=== PATIENT | female | born 1965 | race Caucasian/White ===

== ENCOUNTER → 2019-10-28 | Outpatient (CLI) | payer BC ==
[~2019-10-28] MED LIST: REGADENOSON 0.4 MG/5 ML SYRINGE IV ONE
--- NOTE | 2019-10-28 11:16 | EST ---
EXERCISE STRESS DATE OF SERVICE: 10/28/2019 AGE: 54 SEX: Female HT: 61" WT: 145 pounds PROTOCOL: Lexiscan Cardiolite STAGE: DURATION OF EXERCISE: HEART RATE REST: 68 BLOOD PRESSURE REST: 106/68 MAXIMUM HEART RATE ACHIEVED: 114 MAXIMUM BLOOD PRESSURE: 125/60 85% MPHR: 143 100% MPHR: 168 METS: INDICATIONS: Chest pain. CLINICAL INFORMATION: Baseline EKG revealed normal sinus rhythm with baseline artifact. No acute changes. Patient was administered Lexiscan as per protocol. Heart rate changed from 68 to 114 beats per minute. Blood pressure changed from 106/68 to 125/60. She had transient nausea. EKG was unremarkable. By EKG criteria, this is an unremarkable Lexiscan stress test. The nuclear scan results which are more pertinent will be reported by the radiologist. MMODL / IJN: [id number] /
--- NOTE | 2019-10-28 12:20 | US ---
EXAMINATION TYPE: US abdomen complete DATE OF EXAM: 10/28/2019 COMPARISON: NONE CLINICAL HISTORY: R11.2 nausea and vomiting. Nausea, vomiting and bloating. EXAM MEASUREMENTS: Liver Length: 17.3 cm Gallbladder Wall: .2 cm CBD: .4 cm Spleen: 11.4 cm Right Kidney: 10.4 x 3.9 x 3.1 cm Left Kidney: 10.2 x 4.2 x 4.0 cm Pancreas: Heterogeneous and hypoechoic in appearance at its visualized portions, tail not included o n exam` Liver: Increased attenuation and the liver may be enlarged Gallbladder: No stones seen Evidence for sonographic Pizano's sign: No CBD: wnl Spleen: Heterogenous Right Kidney: wnl there may be duplicated system Left Kidney: wnl, the kidneys show normal cortical medullary differentiation Upper IVC: wnl Abd Aorta: wnl There is no ascites. IMPRESSION: Heterogeneous appearance of the pancreas, spleen is indeterminate, consider pancreatic MR I or CT for better evaluation, possible hepatic steatosis, hepatomegaly
--- NOTE | 2019-10-28 12:28 | NM ---
EXAMINATION TYPE: NM stress lexiscan cardiolite DATE OF EXAM: 10/28/2019 COMPARISON: NONE HISTORY: Chest pain TECHNIQUE: After the intravenous administration of 10.3 mCi Tc 99m Sestamibi - Cardiolite resting SP ECT images acquired 45 minutes post injection. The patient received 0.4mg Lexiscan, 26.9 mCi Tc 99m Sestamibi - Stress images obtained [address] injection FINDINGS: No fixed or reversible perfusion defects are evident. Gated wall motion is normal. The ejec tion fraction of 89% is normal. IMPRESSION: 1. No stress-induced ischemic changes.
== END | disposition home or self-care (01) ==
LOC: RADNMMAIN 08:10
PROVIDERS: ATTEND Physician Assistant Medical
DX: K86.9 Disease of pancreas, unspecified (principal); R06.00 Dyspnea, unspecified; R07.9 Chest pain, unspecified; R53.83 Other fatigue; R11.2 Nausea with vomiting, unspecified
CPT/HCPCS: 93017; 76700; 78452; A9500; J2785

== ENCOUNTER → 2019-12-26 | Outpatient (CLI) | payer BC ==
--- NOTE | 2019-12-26 15:29 | CT ---
EXAMINATION TYPE: CT abdomen wo/w con DATE OF EXAM: 12/26/2019 COMPARISON: Correlation ultrasound 10/28/2019 HISTORY: 54-year-old female abnormal US per patient. Other specified diseases of the pancreas, K86.89 , R11.0 TECHNIQUE: Contiguous axial scanning of the abdomen before and after administration of 100 ml Isovue 300 IV contrast. Delayed images through the kidneys and coronal/sagittal reconstructions performed. CT DLP: 745.3 mGycm Automated exposure control for dose reduction was used. FINDINGS: Heart normal size without pericardial effusion. Lung bases clear without pleural effusion. Tiny hiatal hernia. Liver enlarged at 19.2 cm. No focal lesion or biliary ductal dilatation. Portal venous system is rivera nt. Gallbladder, adrenal glands, right kidney, spleen, pancreas appear within normal limits. Indeterminate 7 mm cortical hypodensity medial upper pole left kidney too small for accurate CT alva cterization. A few prominent mid and left-sided abdominal mesenteric lymph nodes measuring up to 6 mm, probably re active/post inflammatory. Some slight associated mesenteric haziness, reference axial image 41 and 43 . No dilated small bowel, free fluid, or free air. Normal appendix. Oral contrast progressed to the hepatic flexure. No significant stool burden. No pericolonic inflamma tory change within the upper and mid abdomen. The pelvis is not imaged. Partially visualized uterus and left ovary. Bones: Mild degenerative disc disease lower lumbar spine. Fatty matrix hemangioma within the L3 verte bral body. IMPRESSION: 1. No discrete abnormality of the pancreas. 2. A few prominent but nonenlarged mid and left-sided mesenteric lymph nodes with slight associated m esenteric haziness. 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 Six-month follow-up CT rec ommended to ensure stability/resolution. 3. A six-month follow-up CT can also reassess and indeterminate 7 mm cortical lesion of the upper kong e left kidney, probable cortical cyst. 4. Hepatomegaly (19.2 cm). Suspect at least mild hepatic steatosis.
== END | disposition home or self-care (01) ==
LOC: RADCTMAIN 12:58
PROVIDERS: ATTEND Family Medicine
DX: R16.0 Hepatomegaly, not elsewhere classified (principal); Z88.5 Allergy status to narcotic agent
CPT/HCPCS: 74170; Q9967

== ENCOUNTER → 2020-10-03 | Outpatient (CLI) | payer BC ==
--- NOTE | 2020-10-10 11:02 | P.ARTDOP ---
Arterial Doppler LOWER EXTREMITY ARTERIAL DOPPLER: DATE OF SERVICE: 10/03/2020 Reason for study: Bilateral foot numbness and pain. Doppler waveforms: Multiphasic bilaterally throughout. Pulse volume recording: []. Pressure gradients: None. Ankle-brachial indices: Greater than 1 bilaterally. Toe brachial indices: 0.85 on the right, 0.88 on the left Impression: Normal study.
== END | disposition home or self-care (01) ==
LOC: RADUSWWP 12:26
PROVIDERS: ATTEND Family Medicine
DX: M79.604 Pain in right leg (principal); M79.605 Pain in left leg; I10 Essential (primary) hypertension; E78.5 Hyperlipidemia, unspecified
CPT/HCPCS: 93922

== ENCOUNTER 2020-10-25 13:41 | Emergency (ER) | payer BC ==
[2020-10-25 13:49] VITALS: RESP 16; TEMP 98.3
[2020-10-25] MEDS ORDERED: SODIUM CHLORIDE 0.9% 1,000 ML IV STA (14:02)
--- NOTE | 2020-10-25 14:02 | ED ---
General Adult HPI - General Chief complaint: Dizziness Stated complaint: Dizzy Time Seen by Provider: 10/25/20 13:54 Source: patient, RN notes reviewed, old records reviewed Mode of arrival: wheelchair Limitations: no limitations - History of Present Illness Initial comments: 55-year-old female with 3 weeks of dizziness, lightheadedness, generalized wea kness. She is scheduled to see her neurologist but not until later this month. Patient has history of seizure disorder, hypertension, hyperlipidemia. She denies fever. Denies cough or dyspnea. Denies chest pain. She denies focal numbness or weakness. She states that when she stands the room starts to spin. She denies a previous history of vertigo. Symptoms have been present for approximately 3 weeks. She states she has been eating and drinking well, no vomiting. - Related Data Home Medications Medication Instructions Recorded Confirmed Atorvastatin Calcium [Lipitor] 40 mg PO HS 10/25/20 10/25/20 Cholecalciferol [Vitamin D3 (25 25 mcg PO DAILY 10/25/20 10/25/20 Mcg = 1000 Iu)] Escitalopram [Lexapro] 20 mg PO DAILY 10/25/20 10/25/20 Levothyroxine Sodium [Synthroid] 50 mcg PO DAILY 10/25/20 10/25/20 Metoprolol Succinate (ER) [Toprol 25 mg PO DAILY 10/25/20 10/25/20 Xl] Vitamin B-12 W/Folic Acid 1 tab PO DAILY 10/25/20 10/25/20 levETIRAcetam [Keppra] 750 mg PO DAILY 10/25/20 10/25/20 lisinopriL 40 mg PO HS 10/25/20 10/25/20 Previous Rx's Medication Instructions Recorded B-Complex with Vitamin C 1 each PO DAILY #30 tablet 10/25/20 [B-Complex Plus Vitamin C] Magnesium Oxide [Mag-Ox] 250 mg PO BID 30 Days #60 tablet 10/25/20 Allergies Allergy/AdvReac Type Severity Reaction Status Date / Time acetaminophen [From Vicodin] AdvReac Itching Verified 10/25/20 14:24 hydrocodone [From Vicodin] AdvReac Itching Verified 10/25/20 14:24 Review of Systems ROS Statement: Those systems with pertinent positive or pertinent negative responses have been documented in the HPI. ROS Other: All systems not noted in ROS Statement are negative. Past Medical History Past Medical History: Hypertension, Seizure Disorder Additional Past Medical History / Comment(s): skin cancer History of Any Multi-Drug Resistant Organisms: None Reported Past Surgical History: Section Past Psychological History: No Psychological Hx Reported Smoking Status: Former smoker Past Alcohol Use History: Rare Past Drug Use History: None Reported General Exam Limitations: no limitations General appearance: alert, in no apparent distress Head exam: Present: atraumatic, normocephalic Eye exam: Present: normal appearance, PERRL ENT exam: Present: normal exam Neck exam: Present: normal inspection. Absent: tenderness, meningismus Respiratory exam: Present: normal lung sounds bilaterally. Absent: respiratory distress Cardiovascular Exam: Present: normal rhythm, tachycardia GI/Abdominal exam: Present: soft. Absent: distended, tenderness, guarding, rebound Extremities exam: Present: normal inspection, normal capillary refill. Absent: pedal edema, calf tenderness Neurological exam: Present: alert, oriented X3, CN II-XII intact. Absent: motor sensory deficit Psychiatric exam: Present: normal affect, normal mood Skin exam: Present: warm, dry, intact. Absent: cyanosis, diaphoretic Course Vital Signs 10/25/20 10/25/20 13:46 15:27 Temperature 98.3 F Pulse Rate 115 H 86 Respiratory 16 16 Rate Blood Pressure 100/66 113/67 O2 Sat by Pulse 97 98 Oximetry - Reevaluation(s) Reevaluation #1: 10/25/20 16:06 DD hypomagnesemia and macrocytic anemia did discuss alcohol consumption with the patient. She states that she has approximately one bottle of wine nightly. EKG Findings - EKG Comments: EKG Findings:: EKG: Normal sinus rhythm, possible left atrial enlargement, rate of 98, NV interval 160, QRS duration 86, QTC 454, no ST segment elevation. Medical Decision Making - Medical Decision Making 55-year-old female with lightheadedness, dizziness, generalized weakness. Patient mildly tachycardic upon arrival. She has a nonfocal neurologic exam, no limb ataxia, normal strength throughout, [address] is performed which is negative for intracranial hemorrhage or mass effect. Chest x-rays negative for acute cardiac primary disease. She has a CBC with normal leukocytosis, hemoglobin 12.1 with a slightly increased MCV. She has a creatinine 1.1 which is baseline. She has a magnesium of 0.8. She states that she had a lab draw several weeks ago and was noted to be hypomagnesemic she has started 500 mg daily magnesium but discontinued this secondary to diarrhea. I did plan to admit this patient for IV magnesium, and repeat electrolyte testing the morning. She declines she prefers to be discharged home. She is prescribed oral magnesium after being given 2 g of IV magnesium in the emergency department. I suspect that this is largely responsible for her symptoms. She will follow with her primary care physician in one week for repeat lab testing. She will return to emergency department with worsening or changing symptoms. - Lab Data Result diagrams: 10/25/20 14:08 10/25/20 14:08 Lab Results 10/25/20 10/25/20 10/25/20 Range/Units 14:08 14:08 14:08 WBC 6.9 (3.8-10.6) k/uL RBC 3.48 L (3.80-5.40) m/uL Hgb 12.1 (11.4-16.0) gm/dL Hct 35.9 (34.0-46.0) % MCV 103.0 H (80.0-100.0) fL MCH 34.8 (25.0-35.0) pg MCHC 33.8 (31.0-37.0) g/dL RDW 10.7 L (11.5-15.5) % Plt Count 327 (150-450) k/uL MPV 7.3 Neutrophils % 65 % Lymphocytes % 25 % Monocytes % 5 % Eosinophils % 2 % Basophils % 1 % Neutrophils # 4.4 (1.3-7.7) k/uL Lymphocytes # 1.7 (1.0-4.8) k/uL Monocytes # 0.4 (0-1.0) k/uL Eosinophils # 0.2 (0-0.7) k/uL Basophils # 0.1 (0-0.2) k/uL PT (9.0-12.0) sec INR (<1.2) APTT (22.0-30.0) sec Sodium 140 (137-145) mmol/L Potassium 4.3 (3.5-5.1) mmol/L Chloride 104 (98-107) mmol/L Carbon Dioxide 26 (22-30) mmol/L Anion Gap 10 mmol/L BUN 12 (7-17) mg/dL Creatinine 1.10 H (0.52-1.04) mg/dL Est GFR (CKD-EPI)AfAm 66 (>60 ml/min/1.73 sqM) Est GFR (CKD-EPI)NonAf 58 (>60 ml/min/1.73 sqM) Glucose 112 H (74-99) mg/dL Calcium 10.5 H (8.4-10.2) mg/dL Magnesium 0.8 L* (1.6-2.3) mg/dL Total Bilirubin 1.0 (0.2-1.3) mg/dL AST 49 H (14-36) U/L ALT 34 (4-34) U/L Alkaline Phosphatase 80 (38-126) U/L Troponin I <0.012 (0.000-0.034) ng/mL Total Protein 7.3 (6.3-8.2) g/dL Albumin 4.4 (3.5-5.0) g/dL 10/25/20 Range/Units 14:51 WBC (3.8-10.6) k/uL RBC (3.80-5.40) m/uL Hgb (11.4-16.0) gm/dL Hct (34.0-46.0) % MCV (80.0-100.0) fL MCH (25.0-35.0) pg MCHC (31.0-37.0) g/dL RDW (11.5-15.5) % Plt Count (150-450) k/uL MPV Neutrophils % % Lymphocytes % % Monocytes % % Eosinophils % % Basophils % % Neutrophils # (1.3-7.7) k/uL Lymphocytes # (1.0-4.8) k/uL Monocytes # (0-1.0) k/uL Eosinophils # (0-0.7) k/uL Basophils # (0-0.2) k/uL PT 11.3 (9.0-12.0) sec INR 1.1 (<1.2) APTT 22.5 (22.0-30.0) sec Sodium (137-145) mmol/L Potassium (3.5-5.1) mmol/L Chloride (98-107) mmol/L Carbon Dioxide (22-30) mmol/L Anion Gap mmol/L BUN (7-17) mg/dL Creatinine (0.52-1.04) mg/dL Est GFR (CKD-EPI)AfAm (>60 ml/min/1.73 sqM) Est GFR (CKD-EPI)NonAf (>60 ml/min/1.73 sqM) Glucose (74-99) mg/dL Calcium (8.4-10.2) mg/dL Magnesium (1.6-2.3) mg/dL Total Bilirubin (0.2-1.3) mg/dL AST (14-36) U/L ALT (4-34) U/L Alkaline Phosphatase (38-126) U/L Troponin I (0.000-0.034) ng/mL Total Protein (6.3-8.2) g/dL Albumin (3.5-5.0) g/dL Disposition Clinical Impression: Dehydration, Hypomagnesemia Disposition: HOME SELF-CARE Condition: Fair Instructions (If sedation given, give patient instructions): Dizziness (ED), Hypomagnesemia (ED) Additional Instructions: Please take 250 mg of magnesium [id number] supplementation daily. Please follow up with primary care physician within the next one week for repeat lab testing. Please take a vitamin B complex daily. Please reduce alcohol con sumption. Prescriptions: B-Complex with Vitamin C [B-Complex Plus Vitamin C] 1 each PO DAILY #30 tablet Magnesium Oxide [Mag-Ox] 250 mg PO BID 30 Days #60 tablet Is patient prescribed a controlled substance at d/c from ED?: No Referrals: Jamia Irwin MD [Primary Care Provider] - 1-2 days Time of Disposition: 16:09
[2020-10-25] MEDS ORDERED: MECLIZINE 12.5 MG TAB PO STA (14:03)
[2020-10-25 14:22] LABS: Basophils # (A) 0.1 k/uL (0-0.2); Basophils % (A) 1 %; Eosinophils # (A) 0.2 k/uL (0-0.7); Eosinophils % (A) 2 %; HCT 35.9 % (34.0-46.0); HGB 12.1 gm/dL (11.4-16.0); Lymphocytes # (A) 1.7 k/uL (1.0-4.8); Lymphocytes % (A) 25 %; MCH 34.8 pg (25.0-35.0); MCHC 33.8 g/dL (31.0-37.0); Mean Platelet Volume 7.3; Monocytes # (A) 0.4 k/uL (0-1.0); Monocytes % (A) 5 %; Neutrophils # (A) 4.4 k/uL (1.3-7.7); Neutrophils % (A) 65 %; Platelet Count 327 k/uL (150-450); RBC 3.48 m/uL (3.80-5.40); RDW 10.7 % (11.5-15.5); WBC 6.9 k/uL (3.8-10.6)
[2020-10-25 14:36] LABS: Albumin 4.4 g/dL (3.5-5.0); Calcium 10.5 mg/dL (8.4-10.2); Potassium 4.3 mmol/L (3.5-5.1); Total Protein 7.3 g/dL (6.3-8.2)
--- NOTE | 2020-10-25 15:05 | CT ---
EXAMINATION TYPE: CT brain wo con DATE OF EXAM: 10/25/2020 HISTORY: Dizziness and weakness for [address] DLP: 1099.4 mGycm. Automated Exposure Control for Dose Reduction was Utilized. TECHNIQUE: CT scan of the head is performed without contrast. COMPARISON: None. FINDINGS: There is no acute intracranial hemorrhage or midline shift identified. There is mild diff use ventricular and sulcal prominence consistent with diffuse age-related cerebral atrophy. Horton-whit e matter differentiation maintained. There is 2.1 cm mucous retention cyst or polyp in the posterior inferior right maxillary sinus. Patchy fluid signal in the posterior left ethmoid sinuses. Globes are intact bilaterally. No suspicious opacification mastoid air cells. IMPRESSION: No acute intracranial hemorrhage or midline shift.
[2020-10-25 15:10] LABS: Magnesium 0.8 mg/dL (1.6-2.3)
--- NOTE | 2020-10-25 15:10 | XR ---
EXAMINATION TYPE: XR chest 2V DATE OF EXAM: 10/25/2020 COMPARISON: None INDICATION: Syncope, unable to walk TECHNIQUE: Frontal and lateral views of the chest are obtained. FINDINGS: The heart size is normal. The pulmonary vasculature is normal. The lungs are clear. IMPRESSION: 1. No acute pulmonary process.
[2020-10-25 15:14] LABS: INR 1.1 (<1.2); Partial Thromboplastin Time 22.5 sec (22.0-30.0); Prothrombin Time 11.3 sec (9.0-12.0)
[2020-10-25 15:27] VITALS: BP 113/67; PULSE 86
[2020-10-25] MEDS: MAGNESIUM SULFATE-D5W PMX 1 GM in DEXTROSE/WATER 1 100ML.BAG IVPB SCH ×2 (15:27→16:15)
== END 2020-10-25 17:33 | disposition home or self-care (01) ==
LOC: EC 13:41
DX: E83.42 Hypomagnesemia (principal); E86.0 Dehydration; R53.1 Weakness; D72.829 Elevated white blood cell count, unspecified; I10 Essential (primary) hypertension; E78.5 Hyperlipidemia, unspecified; G40.909 Epilepsy, unspecified, not intractable, without status epilepticus; Z79.899 Other long term (current) drug therapy; Z79.890 Hormone replacement therapy; Z88.5 Allergy status to narcotic agent; Z88.6 Allergy status to analgesic agent; Z85.828 Personal history of other malignant neoplasm of skin; Z87.891 Personal history of nicotine dependence
CPT/HCPCS: 36415; 93005; 80053; 83735; 84484; 85025; 85610; 85730; 71046; 70450; 96365; 96366; 96361; 99285; J3475

== ENCOUNTER 2020-11-04 10:25 | Emergency (ER) | payer BC ==
[2020-11-04] MEDS ORDERED: SODIUM CHLORIDE 0.9% 500 ML 500 ML IV STA (10:59)
--- NOTE | 2020-11-04 11:10 | ED ---
Weakness HPI - General Chief complaint: Weakness Stated complaint: possible low magnesium Time Seen by Provider: 11/04/20 10:44 Source: patient Mode of arrival: wheelchair Limitations: no limitations - History of Present Illness Initial comments: Patient is a 55-year-old female presenting to the emergency Department with complaints of weakness and lightheadedness since been going on for 2 weeks. Patient was seen here 10 days ago for same complaint, she was found to have low magnesium at 0.8. She was given some magnesium, it was rechecked 5 days later and was normal at 1.5. She is concerned that it is low again. She has been taking 500 mg of magnesium for 2 days and then took 250 mg today. She denies any room spinning. She states she notices it more when she changes position from laying down to standing she feels lightheaded and that she might fall down. She states that she was recently treated for a "UTI with Diflucan" 2 days ago. She denies any dysuria or hematuria at this time, but does feel a little bit of frequency. She denies any chest pain or shortness of breath, no abdominal pain, no nausea or vomiting. She is only taking lisinopril right now for her blood pressure as she was on a second medication but has been dropping her blood pressure too low. This change was a few months ago. Patient admits to drinking approximately 1 bottle of wine daily for the past 30 years, she states she has not drank anything in the last 2 weeks. Patient did have a follow-up with her doctor last week, she is to follow-up with her neurologist soon. She has no further complaints at this time. Upon arrival to the ER, her vital signs are stable. - Related Data Home Medications Medication Instructions Recorded Confirmed Atorvastatin Calcium [Lipitor] 40 mg PO HS 10/25/20 11/04/20 Escitalopram [Lexapro] 20 mg PO HS 10/25/20 11/04/20 Levothyroxine Sodium [Synthroid] 50 mcg PO DAILY 10/25/20 11/04/20 levETIRAcetam [Keppra] 750 mg PO DAILY 10/25/20 11/04/20 lisinopriL 40 mg PO HS 10/25/20 11/04/20 Folic Acid 1 mg PO DAILY 11/04/20 11/04/20 Multivitamins, Thera [Multivitamin 1 tab PO DAILY 11/04/20 11/04/20 (formulary)] lidocaine HCL [Lidocaine HCl 10 ml MM Q6H PRN 11/04/20 11/04/20 Viscous] Previous Rx's Medication Instructions Recorded Magnesium Oxide [Mag-Ox] 250 mg PO BID 30 Days #60 tablet 10/25/20 Cephalexin [Keflex] 500 mg PO BID 5 Days #10 cap 11/04/20 Allergies Allergy/AdvReac Type Severity Reaction Status Date / Time hydrocodone [From Vicodin] AdvReac Itching Verified 11/04/20 11:15 Review of Systems ROS Statement: Those systems with pertinent positive or pertinent negative responses have been documented in the HPI. ROS Other: All systems not noted in ROS Statement are negative. Past Medical History Past Medical History: Hypertension, Seizure Disorder Additional Past Medical History / Comment(s): skin cancer History of Any Multi-Drug Resistant Organisms: None Reported Past Surgical History: Section Past Psychological History: No Psychological Hx Reported Smoking Status: Former smoker Past Alcohol Use History: Abuse, Heavy Past Drug Use History: None Reported General Exam - General Exam Comments Initial Comments: GENERAL: Patient is well-developed and well-nourished. Patient is nontoxic and in no acute distress. HEAD: Atraumatic, normocephalic. EYES: Pupils equal round and reactive to light, extraocular movements intact, sclera anicteric, conjunctiva are normal. Eyelids were unremarkable. ENT: TMs normal, nares patent, oropharynx clear without exudates. Moist mucous membranes. NECK: Normal range of motion, supple without lymphadenopathy or JVD. LUNGS: Unlabored respirations. Breath sounds clear to auscultation bilaterally and eq ual. No wheezes rales or rhonchi. HEART: Regular rate and rhythm without murmurs, rubs or gallops. ABDOMEN: Soft, nontender, normoactive bowel sounds. No guarding, no rebound. No masses appreciated. : Deferred MUSCULOSKELETAL: Normal extremities with adequate strength and normal range of motion, no pitting or edema. No clubbing or cyanosis. NEUROLOGICAL: Patient is alert and oriented x 3. Motor and sensory are also intact. Cranial nerves II through XII grossly intact. Symmetrical smile. Normal speech, normal gait. PSYCH: Normal mood, normal affect. SKIN: Warm, Dry, normal turgor, no rashes or lesions noted. Limitations: no limitations Course Vital Signs 11/04/20 11/04/20 11/04/20 10:41 11:32 12:32 Temperature 98.1 F 98.3 F Pulse Rate 93 86 74 Respiratory 18 18 18 Rate Blood Pressure 116/70 136/77 134/86 O2 Sat by Pulse 97 99 99 Oximetry EKG Findings - EKG Comments: EKG Findings:: Normal sinus rhythm, normal ECG, no acute process seen. Ventricular rate 74, VT interval 158, QTC 408. Medical Decision Making - Medical Decision Making Patient is a 55-year-old female here for weakness, lightheadedness that has been intermittent over the past 2 weeks. She was seen here 10 days ago for same complaint, magnesium was low at 0.8. It was rechecked 5 days later and was normal at 1.5. She denies any pain today. She has no acute neuro deficits on exam, exam is unremarkable. She has no lightheadedness or dizziness at this time. EKG is normal. Chest x-ray shows no acute process. Labs show a normal white count, normal hemoglobin, troponin is normal, THS is normal. Magnesium is normal at 1.4 today. Lactic acid is normal. Urine shows wbc's, leukocyte esterase, patient is having frequency. Patient's vital signs remained stable in the ER. On reexamination, she is currently having no symptoms. I discussed these findings with the patient. Patient does have an appointment with her neurologist next week. I also recommended following back up with her PCP. Will start her on Keflex for UTI, urine culture is pending. I also recommended trial of meclizine for her symptoms, could be related to some mild vertigo and or related to alcohol withdrawal. Patient is stable for discharge. Patient is in agreement with this plan of care. Return parameters were discussed with the patient and they verbalized understanding. Case discussed with Dr. Núñez. - Lab Data Result diagrams: 11/04/20 11:26 11/04/20 11:26 Lab Results 11/04/20 11/04/20 11/04/20 Range/Units 11:26 11:26 11:26 WBC 6.8 (3.8-10.6) k/uL RBC 3.58 L (3.80-5.40) m/uL Hgb 11.8 (11.4-16.0) gm/dL Hct 36.4 (34.0-46.0) % MCV 101.6 H (80.0-100.0) fL MCH 33.1 (25.0-35.0) pg MCHC 32.6 (31.0-37.0) g/dL RDW 11.3 L (11.5-15.5) % Plt Count 380 (150-450) k/uL MPV 7.6 Neutrophils % 62 % Lymphocytes % 25 % Monocytes % 7 % Eosinophils % 2 % Basophils % 1 % Neutrophils # 4.2 (1.3-7.7) k/uL Lymphocytes # 1.7 (1.0-4.8) k/uL Monocytes # 0.5 (0-1.0) k/uL Eosinophils # 0.2 (0-0.7) k/uL Basophils # 0.0 (0-0.2) k/uL PT 10.7 (9.0-12.0) sec INR 1.0 (<1.2) APTT 23.8 (22.0-30.0) sec Sodium (137-145) mmol/L Potassium (3.5-5.1) mmol/L Chloride (98-107) mmol/L Carbon Dioxide (22-30) mmol/L Anion Gap mmol/L BUN (7-17) mg/dL Creatinine (0.52-1.04) mg/dL Est GFR (CKD-EPI)AfAm (>60 ml/min/1.73 sqM) Est GFR (CKD-EPI)NonAf (>60 ml/min/1.73 sqM) Glucose (74-99) mg/dL Plasma Lactic Acid Tee (0.7-2.0) mmol/L Calcium (8.4-10.2) mg/dL Phosphorus (2.5-4.5) mg/dL Magnesium (1.6-2.3) mg/dL Total Bilirubin (0.2-1.3) mg/dL AST (14-36) U/L ALT (4-34) U/L Alkaline Phosphatase (38-126) U/L Troponin I (0.000-0.034) ng/mL Total Protein (6.3-8.2) g/dL Albumin (3.5-5.0) g/dL TSH (0.465-4.680) mIU/L Urine Color Yellow Urine Appearance Cloudy H (Clear) Urine pH 5.0 (5.0-8.0) Ur Specific Queen 1.031 (1.001-1.035) Urine Protein 1+ H (Negative) Urine Glucose (UA) Negative (Negative) Urine Ketones Negative (Negative) Urine Blood Negative (Negative) Urine Nitrite Negative (Negative) Urine Bilirubin 1+ H (Negative) Urine Urobilinogen <2.0 (<2.0) mg/dL Ur Leukocyte Esterase Large H (Negative) Urine RBC 6 H (0-5) /hpf Urine WBC 28 H (0-5) /hpf Ur Squamous Epith Cells 4 (0-4) /hpf Calcium Oxalate Crystal Many H (None) /hpf Hyaline Casts 13 H (0-2) /lpf Urine Mucus Moderate H (None) /hpf 11/04/20 11/04/20 11/04/20 Range/Units 11:26 11:26 11:26 WBC (3.8-10.6) k/uL RBC (3.80-5.40) m/uL Hgb (11.4-16.0) gm/dL Hct (34.0-46.0) % MCV (80.0-100.0) fL MCH (25.0-35.0) pg MCHC (31.0-37.0) g/dL RDW (11.5-15.5) % Plt Count (150-450) k/uL MPV Neutrophils % % Lymphocytes % % Monocytes % % Eosinophils % % Basophils % % Neutrophils # (1.3-7.7) k/uL Lymphocytes # (1.0-4.8) k/uL Monocytes # (0-1.0) k/uL Eosinophils # (0-0.7) k/uL Basophils # (0-0.2) k/uL PT (9.0-12.0) sec INR (<1.2) APTT (22.0-30.0) sec Sodium 143 (137-145) mmol/L Potassium 4.2 (3.5-5.1) mmol/L Chloride 106 (98-107) mmol/L Carbon Dioxide 27 (22-30) mmol/L Anion Gap 10 mmol/L BUN 14 (7-17) mg/dL Creatinine 0.94 (0.52-1.04) mg/dL Est GFR (CKD-EPI)AfAm 80 (>60 ml/min/1.73 sqM) Est GFR (CKD-EPI)NonAf 70 (>60 ml/min/1.73 sqM) Glucose 103 H (74-99) mg/dL Plasma Lactic Acid Tee 1.0 (0.7-2.0) mmol/L Calcium 10.8 H (8.4-10.2) mg/dL Phosphorus 4.2 (2.5-4.5) mg/dL Magnesium 1.4 L (1.6-2.3) mg/dL Total Bilirubin 0.7 (0.2-1.3) mg/dL AST 46 H (14-36) U/L ALT 26 (4-34) U/L Alkaline Phosphatase 62 (38-126) U/L Troponin I <0.012 (0.000-0.034) ng/mL Total Protein 7.4 (6.3-8.2) g/dL Albumin 4.3 (3.5-5.0) g/dL TSH 2.380 (0.465-4.680) mIU/L Urine Color Urine Appearance (Clear) Urine pH (5.0-8.0) Ur Specific Queen (1.001-1.035) Urine Protein (Negative) Urine Glucose (UA) (Negative) Urine Ketones (Negative) Urine Blood (Negative) Urine Nitrite (Negative) Urine Bilirubin (Negative) Urine Urobilinogen (<2.0) mg/dL Ur Leukocyte Esterase (Negative) Urine RBC (0-5) /hpf Urine WBC (0-5) /hpf Ur Squamous Epith Cells (0-4) /hpf Calcium Oxalate Crystal (None) /hpf Hyaline Casts (0-2) /lpf Urine Mucus (None) /hpf Disposition Clinical Impression: Lightheadedness, UTI (urinary tract infection) Disposition: HOME SELF-CARE Condition: Stable Instructions (If sedation given, give patient instructions): Urinary Tract Infection in Women (ED) Additional Instructions: Please return to the Emergency Department if symptoms worsen or any other concerns. Take antibiotic as prescribed for UTI. Recommend trial of meclizine for vertigo. Please follow-up with your neurologist as well as your PCP. Prescriptions: Cephalexin [Keflex] 500 mg PO BID 5 Days #10 cap Is patient prescribed a controlled substance at d/c from ED?: No Referrals: Jamia Irwin MD [Primary Care Provider] - 1-2 days
--- NOTE | 2020-11-04 11:53 | XR ---
EXAMINATION TYPE: XR chest 2V DATE OF EXAM: 11/04/2020 COMPARISON: 10/25/2020 TECHNIQUE: PA and lateral views submitted. HISTORY: Weakness FINDINGS: The lungs are clear and there is no pneumothorax, pleural effusion, or focal pneumonia. No overt fa ilure. Biapical pleural thickening. Heart size normal. IMPRESSION: 1. No acute process.
[2020-11-04 12:02] LABS: Albumin 4.3 g/dL (3.5-5.0); Calcium 10.8 mg/dL (8.4-10.2); Magnesium 1.4 mg/dL (1.6-2.3); Phosphorus 4.2 mg/dL (2.5-4.5); Potassium 4.2 mmol/L (3.5-5.1); Total Bilirubin 0.7 mg/dL (0.2-1.3); Total Protein 7.4 g/dL (6.3-8.2)
[2020-11-04 12:09] LABS: Basophils % (A) 1 %; Eosinophils # (A) 0.2 k/uL (0-0.7); Eosinophils % (A) 2 %; HCT 36.4 % (34.0-46.0); HGB 11.8 gm/dL (11.4-16.0); Lymphocytes # (A) 1.7 k/uL (1.0-4.8); Lymphocytes % (A) 25 %; MCH 33.1 pg (25.0-35.0); MCHC 32.6 g/dL (31.0-37.0); MCV 101.6 fL (80.0-100.0); Mean Platelet Volume 7.6; Monocytes # (A) 0.5 k/uL (0-1.0); Monocytes % (A) 7 %; Neutrophils # (A) 4.2 k/uL (1.3-7.7); Neutrophils % (A) 62 %; Platelet Count 380 k/uL (150-450); RBC 3.58 m/uL (3.80-5.40); RDW 11.3 % (11.5-15.5); WBC 6.8 k/uL (3.8-10.6)
[2020-11-04 12:14] LABS: Partial Thromboplastin Time 23.8 sec (22.0-30.0); Prothrombin Time 10.7 sec (9.0-12.0)
[2020-11-04 12:35] LABS: Appearance,Urine Cloudy (Clear); Bilirubin,Urine 1+ (Negative); Blood,Urine Negative (Negative); Calcium Oxalate Crystals,Urine Many /hpf; Color,Urine Yellow; Glucose,Urine (UA) Negative (Negative); Hyaline Casts,Urine 13 /lpf (0-2); Ketones,Urine Negative (Negative); Leukocyte Esterase,Urine Large (Negative); Mucus,Urine Moderate /hpf; Nitrite,Urine Negative (Negative); Protein,Urine 1+ (Negative); RBC,Urine 6 /hpf (0-5); Specific Gravity,Urine 1.031 (1.001-1.035); Squamous Epithelial Cell,Urine 4 /hpf (0-4); Urobilinogen,Urine <2.0 mg/dL (<2.0); WBC,Urine 28 /hpf (0-5)
[2020-11-04 14:01] VITALS: BP 147/94; PULSE 73; RESP 16; TEMP 98.4
== END 2020-11-04 14:01 | disposition home or self-care (01) ==
LOC: EC 10:25
DX: N39.0 Urinary tract infection, site not specified (principal); R42 Dizziness and giddiness; R53.1 Weakness; I10 Essential (primary) hypertension; G40.909 Epilepsy, unspecified, not intractable, without status epilepticus; Z79.899 Other long term (current) drug therapy; Z79.890 Hormone replacement therapy; Z88.5 Allergy status to narcotic agent; Z87.891 Personal history of nicotine dependence; Z85.828 Personal history of other malignant neoplasm of skin
CPT/HCPCS: 36415; 71046; 80053; 81001; 83605; 83735; 84100; 84443; 84484; 85025; 85610; 85730; 87086; 93005; 96360; 99285

== ENCOUNTER → 2022-02-14 | Outpatient (CLI) | payer BC ==
--- NOTE | 2022-02-16 11:24 | CT ---
EXAMINATION TYPE: CT abdomen pelvis w con DATE OF EXAM: 02/14/2022 COMPARISON: 12/26/2019 INDICATION: loss of appetite. Abdominal pain, nausea. DLP: 631.50 mGycm, Automated exposure control for dose reduction was used. CONTRAST: 80 mL of Isovue 300. Study performed with Oral Contrast TECHNIQUE: Axial images were obtained from above the diaphragm to the pubic rami in the axial plane a t 5 mm thick sections. Reconstructed images are reviewed on the computer in the coronal plane. FINDINGS: Limited CT sections are obtained the lung bases. The lung bases are clear. CT ABDOMEN: Liver: Is moderate fatty infiltration of liver. No discrete masses are evident. Spleen: Normal Pancreas: Normal Adrenal glands: The adrenal glands are normal. Gallbladder: Normal Kidneys: No masses are evident. No hydronephrosis is present. No cysts are present. Delayed images were obtained through the kidneys, tiny cortical renal cysts are better visualized on the delayed im ages. These were present previously. No interval growth is evident. Aorta: Normal Inferior vena cava: Normal. CT PELVIS: Loops of bowel within the abdomen and pelvis are normal. There are loops of bowel lacking oral co ntrast are incompletely distended limiting their evaluation. Appendix: Not identified. No dilated tubular structure or inflammatory changes are evident. Urinary bladder: Normal. Genitourinary structures: Uterus is normal. Adnexa are normal. Osseous structures: No suspicious lytic or sclerotic lesions. IMPRESSIONS: 1. Moderate fatty infiltration to the liver.
== END | disposition home or self-care (01) ==
LOC: RADCTMAIN 16:21
PROVIDERS: ATTEND Family Medicine
DX: K62.5 Hemorrhage of anus and rectum (principal); R10.84 Generalized abdominal pain; R11.2 Nausea with vomiting, unspecified; R14.0 Abdominal distension (gaseous); R19.7 Diarrhea, unspecified; K76.0 Fatty (change of) liver, not elsewhere classified
CPT/HCPCS: 74177; Q9967

== ENCOUNTER 2022-06-16 18:03 | Observation (INO) | payer BC ==
[2022-06-16] MEDS ORDERED: ONDANSETRON 4 MG/2 ML VIAL IVP STA (19:40)
[2022-06-16] MEDS ORDERED: SODIUM CHLORIDE 0.9% 2,000 ML IV STA (19:40)
[2022-06-16] MEDS ORDERED: diphenhydrAMINE 50 MG/ML 1 ML VIAL IVP STA (19:40)
[2022-06-16] MEDS ORDERED: PANTOPRAZOLE 40 MG/10 ML VIAL IVP STA (19:40)
[2022-06-16 20:14] LABS: Basophils # (A) 0.1 k/uL (0-0.2); Basophils % (A) 1 %; Eosinophils # (A) 0.2 k/uL (0-0.7); Eosinophils % (A) 2 %; HCT 28.4 % (34.0-46.0); HGB 9.2 gm/dL (11.4-16.0); Lymphocytes # (A) 1.1 k/uL (1.0-4.8); Lymphocytes % (A) 16 %; MCH 33.4 pg (25.0-35.0); MCHC 32.4 g/dL (31.0-37.0); Macrocytosis Slight; Mean Platelet Volume 8.2; Monocytes # (A) 0.4 k/uL (0-1.0); Monocytes % (A) 6 %; Neutrophils # (A) 5.2 k/uL (1.3-7.7); Neutrophils % (A) 74 %; Platelet Count 252 k/uL (150-450); RBC 2.75 m/uL (3.80-5.40); RDW 11.6 % (11.5-15.5)
[2022-06-16 20:31] LABS: Albumin 4.6 g/dL (3.5-5.0); INR 1.1 (<1.2); Partial Thromboplastin Time 23.6 sec (22.0-30.0); Potassium 3.9 mmol/L (3.5-5.1); Total Bilirubin 1.1 mg/dL (0.2-1.3); Total Protein 7.3 g/dL (6.3-8.2)
--- NOTE | 2022-06-16 20:31 | ED ---
General Adult HPI - General Chief complaint: Nausea/Vomiting/Diarrhea Stated complaint: vomiting, dehydrated Time Seen by Provider: 06/16/22 19:30 Source: patient, RN notes reviewed, old records reviewed Mode of arrival: ambulatory - History of Present Illness Initial comments: Patient is a 57-year-old female who presents emergency Department complaining of chronic abdominal discomfort, nausea, vomiting, diarrhea. Has been worked up for multiple months for this. He has noticed worsening symptoms over the last 2 weeks including decreased by mouth intake. Believe she is extremely dehydrated. Was sent in by her PCP for further evaluation. They're uncertain what is causi ng her symptoms. Was diagnosed with IBS in the past. She is working on obtaining a HIDA scan outpatient. Denies any abdominal discomfort. Only symptoms are nausea, vomiting, diarrhea. Denies any chest pain, shortness of breath. Denies any urinary complaints. No history of abdominal surgeries. States she does not have nevaeh abdominal pain but instead describes it as an uncomfortable nausea sensation. Is uncertain was causing her symptoms and her and her are concerned for his severe dehydration. No recent sick contacts. Was vaccinated for Covid. Does endorse nonbilious and bloody emesis as well as nonbloody small amounts of diarrhea. Does not believe she is holding any oral intake down. Presents for further evaluation at this time. Denies any history of cardiac disease. - Related Data Home Medications Medication Instructions Recorded Confirmed Atorvastatin Calcium [Lipitor] 40 mg PO HS 10/25/20 11/04/20 Escitalopram [Lexapro] 20 mg PO HS 10/25/20 11/04/20 Levothyroxine Sodium [Synthroid] 50 mcg PO DAILY 10/25/20 11/04/20 levETIRAcetam [Keppra] 750 mg PO DAILY 10/25/20 11/04/20 lisinopriL 40 mg PO HS 10/25/20 11/04/20 Folic Acid 1 mg PO DAILY 11/04/20 11/04/20 Multivitamins, Thera [Multivitamin 1 tab PO DAILY 11/04/20 11/04/20 (formulary)] lidocaine HCL [Lidocaine HCl 10 ml MM Q6H PRN 11/04/20 11/04/20 Viscous] Previous Rx's Medication Instructions Recorded Magnesium Oxide [Mag-Ox] 250 mg PO BID 30 Days #60 tablet 10/25/20 Cephalexin [Keflex] 500 mg PO BID 5 Days #10 cap 11/04/20 Allergies Allergy/AdvReac Type Severity Reaction Status Date / Time hydrocodone [From Vicodin] AdvReac Itching Verified 06/16/22 18:36 Review of Systems ROS Statement: Those systems with pertinent positive or pertinent negative responses have been documented in the HPI. Review of Systems: CONST: Denies fever EYES: Denies blurry vision ENT: Denies nasal congestion C/V: Denies Chest pain RESP: Denies shortness of breath GI: Denies abdominal pain : Denies dysuria SKIN: Denies rash. MSK: Denies joint pain. NEURO: Denies headache ROS Other: All systems not noted in ROS Statement are negative. Past Medical History Past Medical History: Hypertension, Seizure Disorder Additional Past Medical History / Comment(s): skin cancer History of Any Multi-Drug Resistant Organisms: None Reported Past Surgical History: Section Past Psychological History: No Psychological Hx Reported Smoking Status: Former smoker Past Alcohol Use History: Abuse, Heavy Past Drug Use History: None Reported General Exam - General Exam Comments Initial Comments: General: Appears in no acute distress. HEAD: Normal with no signs of head trauma. EYES: PERRLA, EOMI, conjunctiva normal, no discharge. ENT: Hearing grossly intact, normal oropharynx. Dry mucous membranes. RESPIRATORY: Clear breath sounds bilaterally. No wheezes, rales, or rhonchi. C/V: Regular rate and rhythm. S1 and S2 auscultated, no edema, peripheral pulses 2+ and intact throughout ABD: Abd is soft, nontender, nondistended EXT: Normal range of motion, no obvious deformity SKIN: No rashes or lesions observed on exposed skin. NEURO: Alert and oriented 4. Course Vital Signs 06/16/22 18:34 Temperature 98.3 F Pulse Rate 75 Respiratory 18 Rate Blood Pressure 119/80 O2 Sat by Pulse 100 Oximetry Medical Decision Making - Medical Decision Making Based on the patient's presentation and physical exam, I'm concerned for acute on chronic abdominal pathology her current symptoms. I'm concerned for dehydration. She is not here frequently and we do not have many CT abdomen and pelvis is, therefore I did recommend we obtain a CT abdomen and pelvis in addition to abdominal laboratory studies. We'll also like to rule out atypical ACS. She'll be IV hydrated as well as given symptomatic treatment. She was in agreement with this plan. Vital signs are within normal limits. I did tell her expectations that as her symptoms have been chronic, I'm unlikely to discover an acute cause for them. She expressed understanding was in agreement this plan. EKG shows no signs of acute ischemia.Chest x-ray shows no acute cardio pulmonary process. CT abdomen and pelvis was obtained and revealed mild stranding around the kidneys with no hydronephrosis. Fatty infiltration of the liver. No acute process. Patient's trace studies are remarkable for chronic macrocytic anemia with hemoglobin of 9.2 which is stable. Patient has a metabolic acidosis likely secondary to AK I. Lactic acid is still pending at this time. Troponin is undetectable. Lipase is elevated to 329. Bilirubin within normal limits. AST is mildly elevated. On reevaluation, patient still complaining of nausea and vomiting. I discussed results with her. Patient was due to be evaluated by GI, Dr. Stringer for HIDA scan. Dr. Stringer is personal finance instructor. Due to the intractable nausea and vomiting and did recommend admission of the hospital which she was in agreement with. We will consult Dr. Stringer for possible HIDA scan as well. Patient was in agreement this plan. We will continue IV fluid hydration as well as symptomatic treatment. Patient's PCP admits to EMS, who was contacted, [facility]EM[facility] doty who accepted the patient. Dr. Stringer was consulted. - Lab Data Result diagrams: 06/16/22 19:58 06/16/22 19:58 Lab Results 06/16/22 06/16/22 06/16/22 Range/Units 19:58 19:58 19:58 WBC 7.0 (3.8-10.6) k/uL RBC 2.75 L (3.80-5.40) m/uL Hgb 9.2 L (11.4-16.0) gm/dL Hct 28.4 L (34.0-46.0) % MCV 103.0 H (80.0-100.0) fL MCH 33.4 (25.0-35.0) pg MCHC 32.4 (31.0-37.0) g/dL RDW 11.6 (11.5-15.5) % Plt Count 252 (150-450) k/uL MPV 8.2 Neutrophils % 74 % Lymphocytes % 16 % Monocytes % 6 % Eosinophils % 2 % Basophils % 1 % Neutrophils # 5.2 (1.3-7.7) k/uL Lymphocytes # 1.1 (1.0-4.8) k/uL Monocytes # 0.4 (0-1.0) k/uL Eosinophils # 0.2 (0-0.7) k/uL Basophils # 0.1 (0-0.2) k/uL Macrocytosis Slight PT 12.0 (9.0-12.0) sec INR 1.1 (<1.2) APTT 23.6 (22.0-30.0) sec Sodium 137 (137-145) mmol/L Potassium 3.9 (3.5-5.1) mmol/L Chloride 99 (98-107) mmol/L Carbon Dioxide 18 L (22-30) mmol/L Anion Gap 20 mmol/L BUN 15 (7-17) mg/dL Creatinine 1.53 H (0.52-1.04) mg/dL Est GFR (CKD-EPI)AfAm 44 (>60 ml/min/1.73 sqM) Est GFR (CKD-EPI)NonAf 38 (>60 ml/min/1.73 sqM) Glucose 92 (74-99) mg/dL Calcium 9.0 (8.4-10.2) mg/dL Total Bilirubin 1.1 (0.2-1.3) mg/dL AST 54 H (14-36) U/L ALT 16 (4-34) U/L Alkaline Phosphatase 100 (38-126) U/L Troponin I (0.000-0.034) ng/mL Total Protein 7.3 (6.3-8.2) g/dL Albumin 4.6 (3.5-5.0) g/dL Amylase 62 (30-110) U/L Lipase 329 H (23-300) U/L 06/16/22 Range/Units 19:58 WBC (3.8-10.6) k/uL RBC (3.80-5.40) m/uL Hgb (11.4-16.0) gm/dL Hct (34.0-46.0) % MCV (80.0-100.0) fL MCH (25.0-35.0) pg MCHC (31.0-37.0) g/dL RDW (11.5-15.5) % Plt Count (150-450) k/uL MPV Neutrophils % % Lymphocytes % % Monocytes % % Eosinophils % % Basophils % % Neutrophils # (1.3-7.7) k/uL Lymphocytes # (1.0-4.8) k/uL Monocytes # (0-1.0) k/uL Eosinophils # (0-0.7) k/uL Basophils # (0-0.2) k/uL Macrocytosis PT (9.0-12.0) sec INR (<1.2) APTT (22.0-30.0) sec Sodium (137-145) mmol/L Potassium (3.5-5.1) mmol/L Chloride (98-107) mmol/L Carbon Dioxide (22-30) mmol/L Anion Gap mmol/L BUN (7-17) mg/dL Creatinine (0.52-1.04) mg/dL Est GFR (CKD-EPI)AfAm (>60 ml/min/1.73 sqM) Est GFR (CKD-EPI)NonAf (>60 ml/min/1.73 sqM) Glucose (74-99) mg/dL Calcium (8.4-10.2) mg/dL Total Bilirubin (0.2-1.3) mg/dL AST (14-36) U/L ALT (4-34) U/L Alkaline Phosphatase (38-126) U/L Troponin I <0.012 (0.000-0.034) ng/mL Total Protein (6.3-8.2) g/dL Albumin (3.5-5.0) g/dL Amylase (30-110) U/L Lipase (23-300) U/L - EKG Data -: EKG Interpreted by Me EKG Comments: 12-lead Electrocardiogram Interpretation Note EKG was reviewed and interpreted by myself. 12-lead ECG performed at 1949 is interpreted by me as revealing normal sinus rhythm at a rate of 68 beats per minute. [place] is normal. [place] interval 174 ms, QRS duration is 95 ms, QTc is 420 ms. There were no ST or T wave abnormalities to suggest myocardial ischemia or injury. R wave progression across the precordium was satisfactory. By my interpretation this EKG is non-diagnostic for acute ischemia. Disposition Clinical Impression: EBONY (acute kidney injury), Metabolic acidosis, Intractable nausea and vomiting Disposition: ADMITTED IP TO THIS HOSP Condition: Stable Referrals: Jamia Irwin MD [Primary Care Provider] - 1-2 days Time of Disposition: 21:00
--- NOTE | 2022-06-16 21:03 | CT ---
EXAMINATION TYPE: CT abdomen pelvis wo con DATE OF EXAM: 06/16/2022 COMPARISON: 02/14/2022 HISTORY: loss of appetite, N/V CT DLP: 397.7 mGycm Automated exposure control for dose reduction was used. Images obtained from the diaphragm to the floor the pelvis with no contrast. The lung bases are clear. No pleural effusion. Heart size is normal. No pericardial effusion. There i s fatty infiltration of the liver. Spleen is intact. No pancreatic mass. Stomach is intact. The bile ducts are not dilated. Gallbladder is intact. There is no adrenal mass. Kidneys have normal size. There is mild fat stranding around the kidneys. N o hydronephrosis. Ureters are not dilated. No retroperitoneal adenopathy. Bladder distends smoothly. No inguinal hernia. No free fluid in the pelvis. Lumbar vertebra appear intact. No compression fracture. Uterus is anteverted. No free fluid in the pe lvis. There is no mesenteric edema. No ascites or free air. No sign of bowel obstruction. Appendix is poste rior and appears normal. The bony pelvis is intact. The hip joints are intact. IMPRESSION: Mild stranding around the kidneys with no hydronephrosis. This could relate to previous episode of ob struction or inflammation. Normal appendix. Fatty infiltration of the liver.
--- NOTE | 2022-06-16 21:05 | XR ---
EXAMINATION TYPE: XR chest 2V DATE OF EXAM: 06/16/2022 COMPARISON: 11/04/2020 HISTORY: Vomiting. TECHNIQUE: FINDINGS: Heart and mediastinum are normal. Lungs are clear. Diaphragm is normal. Bony thorax is inta ct. IMPRESSION: Normal chest. No change.
[2022-06-16] MEDS ORDERED: NALOXONE 0.4 MG/ML 1 ML VIAL IV PRN (21:25)
[2022-06-16] MEDS ORDERED: ONDANSETRON 4 MG/2 ML VIAL IVP PRN (21:25)
[2022-06-16] MEDS ORDERED: levETIRAcetam IV 1,500 MG in SALINE 1 100ML.BAG IVPB STA (21:26)
[2022-06-16] MEDS: SODIUM CHLORIDE 0.9% 1,000 ML IV SCH (23:00)
[2022-06-17] MEDS: HEPARIN SODIUM,PORCINE/PF 5,000 UNIT/0.5 ML SYRINGE SQ SCH ×4 (00:02→22:43)
[2022-06-17] MEDS: ESCITALOPRAM 20 MG TAB PO SCH ×2 (00:50→19:24)
[2022-06-17] MEDS ORDERED: ALPRAZolam 0.25 MG TAB PO STA (00:50)
[2022-06-17 04:55] LABS: Appearance,Urine Cloudy (Clear); Bacteria,Urine Rare /hpf; Bilirubin,Urine 1+ (Negative); Blood,Urine Negative (Negative); Color,Urine Yellow; Glucose,Urine (UA) Negative (Negative); Hyaline Casts,Urine 13 /lpf (0-2); Ketones,Urine 1+ (Negative); Leukocyte Esterase,Urine Large (Negative); Mucus,Urine Rare /hpf; Nitrite,Urine Negative (Negative); Protein,Urine 1+ (Negative); RBC,Urine 2 /hpf (0-5); Specific Gravity,Urine 1.022 (1.001-1.035); Squamous Epithelial Cell,Urine 3 /hpf (0-4); Transitional Epi Cells,Urine <1 /hpf (0-1); Urobilinogen,Urine <2.0 mg/dL (<2.0); WBC,Urine 3 /hpf (0-5)
[2022-06-17 05:21] LABS: Calcium 7.5 mg/dL (8.4-10.2); Potassium 3.7 mmol/L (3.5-5.1)
[2022-06-17 05:38] LABS: Basophils # (A) 0.1 k/uL (0-0.2); Basophils % (A) 1 %; Eosinophils # (A) 0.1 k/uL (0-0.7); Eosinophils % (A) 2 %; HCT 25.2 % (34.0-46.0); Lymphocytes # (A) 1.6 k/uL (1.0-4.8); Lymphocytes % (A) 28 %; MCH 33.7 pg (25.0-35.0); MCHC 31.7 g/dL (31.0-37.0); MCV 106.2 fL (80.0-100.0); Macrocytosis Slight; Mean Platelet Volume 8.4; Monocytes # (A) 0.4 k/uL (0-1.0); Monocytes % (A) 6 %; Neutrophils # (A) 3.6 k/uL (1.3-7.7); Neutrophils % (A) 61 %; Platelet Count 229 k/uL (150-450); RBC 2.37 m/uL (3.80-5.40); RDW 11.5 % (11.5-15.5); WBC 5.8 k/uL (3.8-10.6)
[2022-06-17] MEDS: SODIUM CHLORIDE 0.9% 1,000 ML IV SCH ×3 (07:28→19:58)
[2022-06-17] MEDS ORDERED: PANTOPRAZOLE 40 MG/10 ML VIAL IV SCH ×2 (09:00→21:00)
--- NOTE | 2022-06-17 09:24 | P.CONS ---
History of Present Illness - Reason for Consult Consult date: 06/17/22 Chronic nausea and vomiting Requesting physician: Liban Chiu - Chief Complaint Nausea and vomiting - History of Present Illness This is a pleasant 57-year-old female who presented to the emergency department with complaints of nausea and vomiting. Patient states she has nausea and vomiting following eating or drinking, that has been going on for the last 2 years duration. She states she has been following with her PCP Dr. Irwin. States she has had ALLERGY testing in the past. She reports a recent EGD and colonoscopy done within the last 1-2 months at [facility], she is unsure of who perform the test. States that they found a polyp, and mild gastritis. She states she's had no further workup. She started vomiting after only water 2 days ago therefore she came in for further evaluation. States she lost approximately 8 pounds in the last 2 weeks duration. States she has also chronic loose stools up to 4-5 a day. Denies any abdominal pain associated with bowel movements or vomiting. She is currently on Protonix, but states it does not help. She's not on any home antibiotics. Denies any blood in her stool or hematemesis. She had a CT of the abdomen and pelvis that shows fatty liver, mild stranding around the kidneys. Labs: WBC 5.8 hemoglobin 8.0 hematocrit 25 platelet count 229,000 INR 1.1 sodium 138 potassium 3.7B 114 creatinine 1.4 total bilirubin 1.1 AST 54 a little T 16 alkaline phosphatase 100 amylase 62 lipase 329 Review of Systems REVIEW OF SYSTEMS: CARDIOPULMONARY: No chest pain or shortness of breath. Gastrointestinal: No abdominal pain or epigastric pain. Chronic nausea and vomiting over the last 2 years duration. Most often associated with eating and now drinking. No hematemesis, coffee-ground emesis. No rectal bleeding, or melena. GENITOURINARY: No dysuria or hematuria. MUSCULOSKELETAL: Reports normal range of motion. SKIN: No rashes. No jaundice. States she gets a rash every summer which they are unsure what it is related to, uses steroids with improvement. ENDOCRINE: No chills, fevers. No excessive weight gain or loss. No polydipsia or polyuria. PSYCHIATRIC: Unremarkable. NEUROLOGY: No change in mental status. Denies dizziness, headache. ENT: Vision unremarkable. CONSTITUTIONAL: Reports 8 pound weight loss in last week duration. No fever, chills, night sweats. Past Medical History Past Medical History: Hypertension, Seizure Disorder Additional Past Medical History / Comment(s): skin cancer History of Any Multi-Drug Resistant Organisms: None Reported Past Surgical History: Section Past Psychological History: No Psychological Hx Reported Smoking Status: Former smoker Past Alcohol Use History: Abuse, Heavy Past Drug Use History: None Reported Medications and Allergies Home Medications Medication Instructions Recorded Confirmed Type Atorvastatin Calcium [Lipitor] 40 mg PO HS 10/25/20 06/16/22 History Escitalopram [Lexapro] 20 mg PO HS 10/25/20 06/16/22 History Levothyroxine Sodium [Synthroid] 50 mcg PO DAILY 10/25/20 06/16/22 History Folic Acid 0.8 mg PO DAILY 06/16/22 06/16/22 History Triamcinolone 0.1% Cream [Kenalog 1 applic TOPICAL BID PRN 06/16/22 06/16/22 History 0.1% Cream] levETIRAcetam [Keppra Xr] 750 mg PO BID 06/16/22 06/16/22 History Allergies Allergy/AdvReac Type Severity Reaction Status Date / Time hydrocodone [From Vicodin] AdvReac Itching Verified 06/16/22 22:51 Physical Exam Vitals: Vital Signs Temp Pulse Pulse Resp BP BP Pulse Ox 06/17/22 08:21 70 20 06/17/22 08:19 98.3 F 70 20 118/67 99 06/17/22 00:56 88 16 115/78 98 06/16/22 18:34 98.3 F 75 18 119/80 100 Intake and Output 06/16/22 06/17/22 06/17/22 22:59 06:59 14:59 Other: Voiding Method Toilet Weight 56.245 kg 56.245 kg General appearance: The patient is alert, oriented, appears in no acute distress. HET: Head is normocephalic and atraumatic. Conjunctiva pink. Sclera anicteric. Neck: Supple without lymphadenopathy. Trachea midline. Heart: S1 S2. Regular rate and rhythm. Lungs: Clear to auscultation. Abdomen: Soft, nontender, nondistended with bowel sounds. No guarding or rigidity. Skin: No rashes. No jaundice. Extremities: Normal skin color and turgor. No pedal edema. Neurological: No focal deficits. Alert and oriented x3. Results CBC & Chem 7: 06/17/22 04:57 06/17/22 04:57 Labs: Abnormal Lab Results - Last 24 Hours (Table) 06/16/22 06/16/22 06/17/22 Range/Units 19:58 19:58 04:40 RBC 2.75 L (3.80-5.40) m/uL Hgb 9.2 L (11.4-16.0) gm/dL Hct 28.4 L (34.0-46.0) % MCV 103.0 H (80.0-100.0) fL Carbon Dioxide 18 L (22-30) mmol/L Creatinine 1.53 H (0.52-1.04) mg/dL Calcium (8.4-10.2) mg/dL AST 54 H (14-36) U/L Lipase 329 H (23-300) U/L Urine Appearance Cloudy H (Clear) Urine Protein 1+ H (Negative) Urine Ketones 1+ H (Negative) Urine Bilirubin 1+ H (Negative) Ur Leukocyte Esterase Large H (Negative) Urine Bacteria Rare H (None) /hpf Hyaline Casts 13 H (0-2) /lpf Urine Mucus Rare H (None) /hpf 06/17/22 06/17/22 Range/Units 04:57 04:57 RBC 2.37 L (3.80-5.40) m/uL Hgb 8.0 L (11.4-16.0) gm/dL Hct 25.2 L (34.0-46.0) % MCV 106.2 H (80.0-100.0) fL Carbon Dioxide 20 L (22-30) mmol/L Creatinine 1.41 H (0.52-1.04) mg/dL Calcium 7.5 L (8.4-10.2) mg/dL AST (14-36) U/L Lipase (23-300) U/L Urine Appearance (Clear) Urine Protein (Negative) Urine Ketones (Negative) Urine Bilirubin (Negative) Ur Leukocyte Esterase (Negative) Urine Bacteria (None) /hpf Hyaline Casts (0-2) /lpf Urine Mucus (None) /hpf CT scan - abdomen: report reviewed (Mild stranding around the kidneys with no hydronephrosis. Could relate to previous episode of obstruction or inflammation. Normal appendix. Fatty infiltrate of the liver.) Assessment and Plan (1) Nausea and vomiting Narrative/Plan: 57-year-old female with chronic nausea and vomiting over the last 2 years duration. She complains of 8 pound weight loss last 2 weeks duration. Nausea and vomiting is associated mostly to eating but now even water was coming up. She has had a EGD colonoscopy within the last 1-2 months duration which reportedly is not available at this time. States that they found mild inflammation and a colon polyp. She is not followed with anyone other than her primary care physician. Reports of possible IBS no associated abdominal pain, hematemesis or melena. Currently on Protonix at home, no antimanic. Unclear etiology at this time. Will request EGD colonoscopy report. Will add celiac t esting. Continue antiemetics, PPI. Will order gastric emptying study to evaluate for gastroparesis. Current Visit: Yes Status: Acute Code(s): R11.2 - NAUSEA WITH VOMITING, UNSPECIFIED SNOMED Code(s): 89671280 (2) Normochromic normocytic anemia Narrative/Plan: Iron studies ordered Current Visit: Yes Status: Acute Code(s): D64.9 - ANEMIA, UNSPECIFIED SNO MED Code(s): 99621583 Plan: 1. Continue symptomatic and supportive care 2. Diet as tolerated 3. Celiac panel ordered 4. Iron studies ordered 5. Protonix 40 mg twice a day 6. Continue antiemetics as needed 7. Gastric emptying study ordered 8. Further recommendations forthcoming Thank you for this consultation, we will continue to follow. Dr. Dedrick Stringer I agree with the dictator's note, documented as a scribe by Erica Ramirez.
[2022-06-17] MEDS ORDERED: ACETAMINOPHEN TAB 325 MG TAB PO PRN (11:34)
[2022-06-17] MEDS: FOLIC ACID 1 MG TAB PO SCH (11:53)
[2022-06-17] MEDS: LEVOTHYROXINE 50 MCG TAB PO SCH (11:53)
[2022-06-17 14:59] LABS: % Iron Saturation 21.91 (12.00-45.00)
[2022-06-17] MEDS ORDERED: ALPRAZolam 0.25 MG TAB PO PRN (18:24)
[2022-06-17] MEDS ORDERED: ATORVASTATIN 40 MG TAB PO SCH (21:00)
[2022-06-17 21:28] LABS: Gliadin AB IgA, Deaminated NEGATIVE (NEGATIVE); Gliadin AB IgA, Unit 0.9 U/mL; Gliadin AB IgG, Deaminated NEGATIVE (NEGATIVE); Gliadin AB IgG, Unit <0.4 U/mL
--- NOTE | 2022-06-18 00:15 | P.HPIM ---
History of Present Illness H&P Date: 06/17/22 Chief Complaint: Nausea and vomiting Patient is a 57-year-old female with a known history of hypertension, hypothyroidism, seizure disorder, previous history of smoking and heavy alcohol use presents ER with complaints of nausea vomiting and diarrhea. Emesis is mainly nonbilious. Denied any hematemesis or melena. Patient has not been tolerating oral diet. Patient has been having symptoms since last August. Over the last 2 weeks patient has worsening symptoms and decreased oral intake. Patient was seen by PCP and sent to ER for further evaluation. Patient says that she was diagnosed with IBS in the past. Denied any complaints of significant abdominal discomfort. No fever no chills. No chest pain or shortness of breath. No cough or sputum production. Denied any recent illnesses. Denied any dysuria or hematuria. Patient says that she is supposed to get a HIDA scan as an outpatient and is on follow with her physician. CT of abdomen pelvis showed mild stranding around the kidneys with no hydronephrosis. This could be related to previous episode of obstruction or inflammation. Chest x-ray showed no acute process neck and EKG showed sinus rhythm Laboratory data showed WBC 5.8 hemoglobin 8.0 and platelets 229 Sodium 138 potassium 3.7 chloride 106 bicarb is 20 BUN 14 and creatinine 1.41 Iron profile showed iron level XLVI TIBC 209 and persistent saturation 21.9 Urinalysis showed cloudy with 1+ protein and 1+ ketones and large leukocyte esterase nitrate negative. Code 19 recent nondetected. Celiac disease panel was ordered by GI Review of Systems Constitutional: Patient denies any fever or chills . No generalized weakness or weight loss. Abdomen: Patient does complain of nausea vomiting and diarrhea. Minimal abdominal discomfort.. Cardiovascular: Patient denies any chest pain or short of breath no palpitations. Respiratory: patient denied any cough is from production. No shortness of b reath Neurologic: Patient denied any numbness or tingling headache. Musculoskeletal: Patient denies any complaints of joint swelling or deformity. Skin: Negative Psychiatric: Negative Endocrine: No heat or cold intolerance. No recent weight gain. Genitourinary: No dysuria or hematuria. All other 14 point ROS negative except the above Past Medical History Past Medical History: Hypertension, Seizure Disorder Additional Past Medical History / Comment(s): skin cancer History of Any Multi-Drug Resistant Organisms: None Reported Past Surgical History: Section Past Psychological History: No Psychological Hx Reported Smoking Status: Former smoker Past Alcohol Use History: Abuse, Heavy Past Drug Use History: None Reported Medications and Allergies Home Medications Medication Instructions Recorded Confirmed Type Atorvastatin Calcium [Lipitor] 40 mg PO HS 10/25/20 06/16/22 History Escitalopram [Lexapro] 20 mg PO HS 10/25/20 06/16/22 History Levothyroxine Sodium [Synthroid] 50 mcg PO DAILY 10/25/20 06/16/22 History Folic Acid 0.8 mg PO DAILY 06/16/22 06/16/22 History Triamcinolone 0.1% Cream [Kenalog 1 applic TOPICAL BID PRN 06/16/22 06/16/22 History 0.1% Cream] levETIRAcetam [Keppra Xr] 750 mg PO BID 06/16/22 06/16/22 History Allergies Allergy/AdvReac Type Severity Reaction Status Date / Time hydrocodone [From Vicodin] AdvReac Itching Verified 06/16/22 22:51 Physical Exam Vitals: Vital Signs Temp Pulse Pulse Resp BP BP Pulse Ox 06/17/22 08:21 70 20 06/17/22 08:19 98.3 F 70 20 118/67 99 06/17/22 00:56 88 16 115/78 98 06/16/22 18:34 98.3 F 75 18 119/80 100 Intake and Output 06/16/22 06/17/22 06/17/22 22:59 06:59 14:59 Other: Voiding Method Toilet Weight 56.245 kg 56.245 kg PHYSICAL EXAMINATION: Patient is lying in the bed comfortably, no acute distress, awake alert and oriented.. HEENT: Normocephalic. Neck is supple. Pupils reactive. Nostrils clear. Oral cavity is moist. Neck reveals no JVD, carotid bruits, or thyromegaly. CHEST EXAMINATION: Trachea is central. Symmetrical expansion. Lung elliott clear to auscultation and percussion. CARDIAC: Normal S1, S2 with no gallops. No murmurs ABDOMEN: Soft. Bowel sounds normal. No organomegaly. No abdominal bruits. Extremities: reveal no edema. No clubbing or cyanosis Neurologically awake, alert, oriented x3 with well-coordinated movements. No focal deficits noted Skin: No rash or skin lesions. Psychiatric: Coperative. Nonsuicidal Musculoskeletal: No joint swelling or deformity. Normal range of motion. Results CBC & Chem 7: 06/18/22 05:14 06/17/22 04:57 Labs: Abnormal Lab Results - Last 24 Hours (Table) 06/16/22 06/16/22 06/17/22 Range/Units 19:58 19:58 04:40 RBC 2.75 L (3.80-5.40) m/uL Hgb 9.2 L (11.4-16.0) gm/dL Hct 28.4 L (34.0-46.0) % MCV 103.0 H (80.0-100.0) fL Carbon Dioxide 18 L (22-30) mmol/L Creatinine 1.53 H (0.52-1.04) mg/dL Calcium (8.4-10.2) mg/dL AST 54 H (14-36) U/L Lipase 329 H (23-300) U/L Urine Appearance Cloudy H (Clear) Urine Protein 1+ H (Negative) Urine Ketones 1+ H (Negative) Urine Bilirubin 1+ H (Negative) Ur Leukocyte Esterase Large H (Negative) Urine Bacteria Rare H (None) /hpf Hyaline Casts 13 H (0-2) /lpf Urine Mucus Rare H (None) /hpf 06/17/22 06/17/22 Range/Units 04:57 04:57 RBC 2.37 L (3.80-5.40) m/uL Hgb 8.0 L (11.4-16.0) gm/dL Hct 25.2 L (34.0-46.0) % MCV 106.2 H (80.0-100.0) fL Carbon Dioxide 20 L (22-30) mmol/L Creatinine 1.41 H (0.52-1.04) mg/dL Calcium 7.5 L (8.4-10.2) mg/dL AST (14-36) U/L Lipase (23-300) U/L Urine Appearance (Clear) Urine Protein (Negative) Urine Ketones (Negative) Urine Bilirubin (Negative) Ur Leukocyte Esterase (Negative) Urine Bacteria (None) /hpf Hyaline Casts (0-2) /lpf Urine Mucus (None) /hpf Thrombosis Risk Factor Assmnt - DVT/VTE Prophylaxis DVT/VTE Prophylaxis: Pharmacologic Prophylaxis ordered - Choose All That Apply Any of the Below Risk Factors Present?: Yes Each Factor Represents 1 point: Age 41-60 years Other Risk Factors: No Other congenital or acquired thrombophilia - If yes, enter type in comment: No Thrombosis Risk Factor Assessment Total Risk Factor Score: 1 Thrombosis Risk Factor Assessment Level: Low Risk Assessment and Plan Assessment: Intractable nausea vomiting and chronic diarrhea. Patient had recent EGD and colonoscopy showed mild inflammation and colon polyp. Possible IBS Acute kidney injury likely prerenal Hypertension Seizure disorder Hypothyroidism Treatment history of smoking History of heavy alcohol use DVT prophylaxis with heparin subcu Plan: Patient will be continued on IV hydration and symptomatic management for nausea. Continue with Protonix and follow-up H&H and renal function. Gastrology service was consulted. Patient had recent EGD and colostomy about 1-2 months ago. GI is planning for gastric emptying study. Continue to follow closely. Time with Patient: Greater than 30
[2022-06-18] MEDS: SODIUM CHLORIDE 0.9% 1,000 ML IV SCH (04:05)
[2022-06-18] MEDS: LEVOTHYROXINE 50 MCG TAB PO SCH (06:30)
[2022-06-18 08:48] VITALS: BP 119/71; PULSE 65; RESP 16; TEMP 98.2
[2022-06-18 08:55] LABS: Basophils # (A) 0.04 X 10*3/uL (0.00-0.10); Basophils % (A) 0.7 %; Eosinophils # (A) 0.11 X 10*3/uL (0.04-0.35); HGB 7.2 g/dL (12.0-15.0); Immature Grans, Automated 0.6 %; Lymphocytes # (A) 1.28 X 10*3/uL (0.90-5.00); Lymphocytes % (A) 23.7 %; MCH 33.8 pg (27.0-32.0); MCHC 31.3 g/dL (32.0-37.0); Mean Platelet Volume 10.9 fL (9.5-12.2); Monocytes % (A) 9.2 %; NRBC Per 100 WBC 0 /100 WBCS (0.0-0.0); Neutrophils # (A) 3.45 X 10*3/uL (1.80-7.70); Neutrophils % (A) 63.8 %; Platelet Count 193 X 10*3/uL (140-440); RBC 2.13 X 10*6/uL (4.10-5.20); RDW 11.7 % (11.5-14.5); WBC 5.41 X 10*3/uL (4.50-10.00)
[2022-06-18] MEDS: FOLIC ACID 1 MG TAB PO SCH (08:57)
[2022-06-18] MEDS: HEPARIN SODIUM,PORCINE/PF 5,000 UNIT/0.5 ML SYRINGE SQ SCH (08:57)
[2022-06-18 09:25] LABS: African American GFR (CKD) 65.5 (60.0-200.0); Anion Gap 12.7 mmol/L (10.00-18.00); Blood Urea Nitrogen 8.8 mg/dL (9.0-27.0); Calcium 6.9 mg/dL (8.7-10.3); Carbon Dioxide 18.3 mmol/L (20.0-27.5); Non-African American GFR(CKD) 56.5 (60.0-200.0); Potassium 3.6 mmol/L (3.5-5.5)
--- NOTE | 2022-06-18 11:34 | P.PN ---
Subjective Progress Note Date: 06/18/22 Principal diagnosis: Nausea and vomiting This is a pleasant 57-year-old female who presented to the emergency department with complaints of nausea and vomiting. Patient states she has nausea and vomiting following eating or drinking, that has been going on for the last 2 years duration. She states she has been following with her PCP Dr. Irwin. States she has had ALLERGY testing in the past. She reports a recent EGD and colonoscopy done within the last 1-2 months at [facility], she is unsure of who perform the test. States that they found a polyp, and mild gastritis. She states she's had no further workup. She started vomiting after only water 2 days ago therefore she came in for further evaluation. States she lost approximately 8 pounds in the last 2 weeks duration. States she has also chronic loose stools up to 4-5 a day. Denies any abdominal pain associated with bowel movements or vomiting. She is currently on Protonix, but states it does not help. She's not on any home antibiotics. Denies any blood in her stool or hematemesis. She had a CT of the abdomen and pelvis that shows fatty liver, mild stranding around the kidneys. 06/18/2022: Patient was seen and examined today as a follow-up for nausea and vomiting. She's had no further nausea or vomiting since she's been admitted to the hospital. She was on Protonix and Zofran. Gastric emptying study was ordered however apparently patient has to be off of Protonix for 48 hours and Zofran for at least 18 hours. Patient denies any abdominal pain, nausea, or vomiting. She is tolerating clear liquid diet. She would like to be discharged home. Objective - Vital Signs Vital signs: Vital Signs Temp 98.2 F 06/18/22 07:00 Pulse 65 06/18/22 07:00 Resp 16 06/18/22 07:00 BP 119/71 06/18/22 07:00 Pulse Ox 99 06/18/22 07:00 FiO2 Intake & Output 06/17/22 06/18/22 06/18/22 18:59 06:59 18:59 Intake Total 180 Balance 180 Weight 56.245 kg Intake: Oral 180 Other: Voiding Method Toilet Toilet # Voids 1 1 - Exam General appearance: The patient is alert, oriented, appears in no acute distress. HET: Head is normocephalic and atraumatic. Conjunctiva pink. Sclera anicteric. Neck: Supple without lymphadenopathy. Abdomen: Soft, nontender, nondistended with bowel sounds. No guarding or rigidity. Extremities: Normal skin color and turgor. No pedal edema Skin: No rashes, no jaundice Neurological: No focal deficits. Alert and oriented x 3. - Labs CBC & Chem 7: 06/18/22 05:14 06/18/22 05:14 Labs: Abnormal Lab Results - Last 24 Hours (Table) 06/17/22 Range/Units 04:57 Iron 46 L (50-170) ug/dL TIBC 209 L (228-460) ug/dL Transferrin 149.0 L (204.0-354.0) mg/dL Ferritin 583.0 H (10.0-291.0) ng/mL Assessment and Plan (1) Nausea and vomiting Narrative/Plan: 57-year-old female with chronic nausea and vomiting over the last 2 years duration. She complains of 8 pound weight loss last 2 weeks duration. Nausea and vomiting is associated mostly to eating but now even water was coming up. She has had a EGD colonoscopy within the last 1-2 months duration which reportedly is not available at this time. States that they found mild inflamm ation and a colon polyp. She is not followed with anyone other than her primary care physician. Reports of possible IBS no associated abdominal pain, hematemesis or melena. Currently on Protonix at home, no antimanic. Unclear etiology at this time. Will request EGD colonoscopy report. Will add celiac testing. Continue antiemetics, PPI. Will order gastric emptying study to evaluate for gastroparesis. Nausea and vomiting improved gastric emptying study ordered however patient has been on Zofran and Protonix. 8. Protonix 48 hours and Zofran 18 hours before study can be completed. Recommend outpatient study as patient is able to eat and hold her food down. Status: Acute Code(s): R11.2 - NAUSEA WITH VOMITING, UNSPECIFIED SNOMED Code(s): 03221211 (2) Normochromic normocytic anemia Narrative/Plan: Iron studies ordered Status: Acute Code(s): D64.9 - ANEMIA, UNSPECIFIED SNOMED Code(s): 96318859 Plan: 1. Continue symptomatic and supportive care 2. Diet as tolerated 3. Celiac panel ordered 4. Iron studies ordered 5. Protonix 40 mg twice a day 6. Continue antiemetics as needed 7. Gastric emptying study ordered, this can be done outpatient Thank you for this consultation, patient is cleared for discharge from gastroenterology. Follow-up within the next week. Dr. Dedrick Stringer I agree with the dictator's note, documented as a scribe by Erica Ramirez.
== END 2022-06-18 10:43 | disposition home or self-care (01) ==
LOC: EC 18:03 → 6NMEDSUR 21:39
PROVIDERS: ADMIT Hospitalist; ATTEND Hospitalist
DX: R11.2 Nausea with vomiting, unspecified (principal); E87.2 Acidosis; N17.9 Acute kidney failure, unspecified; E86.0 Dehydration; D53.9 Nutritional anemia, unspecified; K52.9 Noninfective gastroenteritis and colitis, unspecified; K76.0 Fatty (change of) liver, not elsewhere classified; I10 Essential (primary) hypertension; G40.909 Epilepsy, unspecified, not intractable, without status epilepticus; R63.4 Abnormal weight loss; E03.9 Hypothyroidism, unspecified; F10.10 Alcohol abuse, uncomplicated; Z20.822 Contact with and (suspected) exposure to COVID-19; Z79.890 Hormone replacement therapy; Z79.899 Other long term (current) drug therapy; Z88.5 Allergy status to narcotic agent; Z85.828 Personal history of other malignant neoplasm of skin; Z98.891 History of uterine scar from previous surgery; Z87.891 Personal history of nicotine dependence; Z86.010 Personal history of colon polyps; Z87.19 Personal history of other diseases of the digestive system
CPT/HCPCS: 96376; 96361 ×3; 96365; 96375; 99285; 36415; 93005; 80053; 80048 ×2; 82728; 82150; 83540; 83550; 83605; 83690; 84484; 85025 ×3; 85610; 85730; 81001; 83516 ×4; 87635; 71046; 74176; G0378 ×3; J1200; J2405 ×2; J1953; C9113 ×2

== ENCOUNTER → 2022-07-14 | Outpatient (CLI) | payer BC ==
--- NOTE | 2022-07-14 09:33 | NM ---
EXAMINATION TYPE: NM hepatobiliary w EF DATE OF EXAM: 07/14/2022 9:14 AM COMPARISON: CT abdomen pelvis most recent from 06/16/2022 CLINICAL INDICATION:Female, 57 years old with history of R11.2 nausea w/vomiting; TECHNIQUE: The patient was given 4.3 mCi of Technetium 99m-Mebrofenin as a radiotracer and multiple scintigraphic images were obtained of the abdomen. Gallbladder function was also assessed after the a dministration of ensure drink and additional scintigraphic images were obtained of the abdomen. A reg ion of interest was drawn over the gallbladder and a timing activity curve was generated. The gallbla dder ejection fraction was calculated. FINDINGS: Radiotracer is seen within the liver, at the start of the study with graded tracer in the gallbladder at 6 minutes and within the small bowel at 2 minutes. Maximum calculated gallbladder ejection fraction is: 81% at 30 minutes (Normal gallbladder ejection fraction is > 35%) IMPRESSION: 1. Normal hepatobiliary scan. 2. Normal ejection fraction.
== END | disposition home or self-care (01) ==
LOC: RADNMMAIN 06:36
PROVIDERS: ATTEND Family Medicine
DX: R11.2 Nausea with vomiting, unspecified (principal)
CPT/HCPCS: 78226; A9537

== ENCOUNTER → 2022-09-09 | Outpatient (CLI) | payer BC ==
--- NOTE | 2022-09-09 15:17 | MR ---
EXAMINATION TYPE: MR brain wo/w con DATE OF EXAM: 09/09/2022 COMPARISON: CT brain 10/25/2020 HISTORY: Nausea, dizziness, vomiting TECHNIQUE: Multiplanar, multisequence images of the brain and brainstem is performed without and with IV contras t, utilizing 6 mL intravenous Gadavist . FINDINGS: Diffusion weighted images demonstrate no evidence of a recent infarct or other diffusion ab normality. There is no extra-axial fluid collection or significant white matter signal abnormality. The ventricular system and cisternal spaces are normal in size and appearance. The brain volume is age appropriate. Midline structures demonstrate normal morphology. The craniocervical junction appears within normal limits. Post contrast images demonstrate no abnormal enhancement. The dural venous sinuses appear pa tent. The bones are intact. Moderate mucosal thickening of the bilateral maxillary sinuses. IMPRESSION: 1. No evidence of acute ischemia or abnormal enhancement. 2. Bilateral maxillary sinus disease.
== END | disposition home or self-care (01) ==
LOC: RADMRIMAIN 11:23
PROVIDERS: ATTEND Internal Medicine Hematology & Oncology
DX: J32.0 Chronic maxillary sinusitis (principal)
CPT/HCPCS: 70553; A9585

== ENCOUNTER → 2023-04-03 | Outpatient (CLI) | payer BC ==
--- NOTE | 2023-04-06 08:14 | MM ---
Reason for Exam: Screening (asymptomatic). Patient History: Menarche at age 16. First Full-Term at age 32. Late child-bearing (after 30). Postmenopausal. Risk Values: Joan 5 year model risk: 1.5%. NCI Lifetime model risk: 10.2%. Prior Study Comparison: No prior studies available for comparison. Tissue Density: The breast tissue is heterogeneously dense. This may lower the sensitivity of mammography. Findings: Analyzed By CAD. There is no suspicious group of microcalcifications or new suspicious mass in either breast. Overall Assessment: Benign, BI-RAD 2 Management: Screening Mammogram of both breasts in 1 year. . Patient should continue monthly self-breast exams. A clinical breast exam by your physician is recommended on an annual basis. This exam should not preclude additional follow-up of suspicious palpable abnormalities. Note on Joan scores and lifetime risk: 1. A Joan score greater than 3% is considered moderate risk. If this is the case, consider specialist referral to assess eligibility for a risk reducing agent. 2. If overall lifetime risk for the development of breast cancer is 20% or higher, the patient may qualify for future screening with alternating mammogram and breast MRI. Electronically signed and approved by: Fernando Lambert M.D. Radiologis
== END | disposition home or self-care (01) ==
LOC: RADMAMWWP 14:23
PROVIDERS: ATTEND Family Medicine
DX: Z12.31 Encounter for screening mammogram for malignant neoplasm of breast (principal); Z78.0 Asymptomatic menopausal state
CPT/HCPCS: 77063; 77067

== ENCOUNTER 2023-11-27 17:07 | Emergency (ER) | payer BC ==
[2023-11-27 17:14] VITALS: TEMP 98.3
[2023-11-27] MEDS: SODIUM CHLORIDE 0.9% 1,000 ML IV STA (17:59)
[2023-11-27] MEDS: levETIRAcetam IV 500 MG/5 ML VIAL IVP STA (18:01)
--- NOTE | 2023-11-27 18:01 | ED ---
General Adult HPI - General Chief complaint: Seizure Stated complaint: Seizure Time Seen by Provider: 11/27/23 17:19 Source: patient Mode of arrival: wheelchair Limitations: no limitations - History of Present Illness Initial comments: Dictation was produced using [employer]! dictation software. please excuse any grammatical, word or spelling errors. Chief Complaint: 58-year-old female history of seizure and hypertension presents to the ER after seizure History of Present Illness: Patient 58-year-old female she was brought in by her . Patient had an alleged witnessed seizure by her . She has history of seizure disorder takes Keppra. Last 1 to 2 days she has been nauseated unable to keep her nausea and seizure medicine down. She had a seizure that lasted for several minutes. describes that patient was confused after the convulsions stopped. Patient denies any pain. The ROS documented in this emergency department record has been reviewed and confirmed by me. Those systems with pertinent positive or negative responses have been documented in the HPI. All other systems are other negative and/or noncontributory. - Related Data Home Medications Medication Instructions Recorded Confirmed Atorvastatin Calcium [Lipitor] 40 mg PO HS 10/25/20 06/16/22 Escitalopram [Lexapro] 20 mg PO HS 10/25/20 06/16/22 Levothyroxine Sodium [Synthroid] 50 mcg PO DAILY 10/25/20 06/16/22 Folic Acid 0.8 mg PO DAILY 06/16/22 06/16/22 Triamcinolone 0.1% Cream [Kenalog 1 applic TOPICAL BID PRN 06/16/22 06/16/22 0.1% Cream] levETIRAcetam [Keppra Xr] 750 mg PO BID 06/16/22 06/16/22 Previous Rx's Medication Instructions Recorded Ondansetron [Zofran] 4 mg PO Q8HR PRN #12 tab 06/18/22 Pantoprazole Sodium [Protonix] 40 mg PO BID #60 tab 06/18/22 Allergies Allergy/AdvReac Type Severity Reaction Status Date / Time hydrocodone [From Vicodin] AdvReac Itching Verified 06/16/22 22:51 Review of Systems ROS Statement: Those systems with pertinent positive or pertinent negative responses have been documented in the HPI. ROS Other: All systems not noted in ROS Statement are negative. Past Medical History Past Medical History: Hypertension, Seizure Disorder Additional Past Medical History / Comment(s): skin cancer History of Any Multi-Drug Resistant Organisms: None Reported Past Surgical History: Section Past Psychological History: No Psychological Hx Reported Smoking Status: Former smoker Past Alcohol Use History: Abuse, Heavy Past Drug Use History: None Reported General Exam - General Exam Comments Initial Comments: PHYSICAL EXAM: General Impression: Alert and oriented x3, not in acute distress HEENT: Normocephalic atraumatic, extra-ocular movements intact, pupils equal and reactive to light bilaterally, mucous membranes moist. Cardiovascular: Heart regular rate and rhythm Chest: Able to complete full sentences, no retractions, no tachypnea Abdomen: abdomen soft, non-tender, non-distended, no organomegaly Musculoskeletal: Pulses present and equal in all extremities, no peripheral edema Motor: no focal deficits noted Neurological: CN II-XII grossly intact, no focal motor or sensory deficits noted Skin: Intact with no visualized rashes Psych: Normal affect and mood Limitations: no limitations Course Vital Signs 11/27/23 17:09 Temperature 98.3 F Pulse Rate 97 Respiratory 18 Rate Blood Pressure 164/93 O2 Sat by Pulse 98 Oximetry EKG Findings - EKG Comments: EKG Findings:: My EKG interpretation: Ventricular rate 65, sinus rhythm, parable 165, cures 88, QTc 395. No ID prolongation, no QTC prolongation, no ST or T-wave changes noted. Overall, this EKG is unremarkable Medical Decision Making - Medical Decision Making Was pt. sent in by a medical professional or institution (, PA, PRINT JOURNALIST, urgent ca re, hospital, or senior living...) When possible be specific @ -No Did you speak to anyone other than the patient for history (EMS, parent, family, police, friend...)? What history was obtained from this source @ - as described above Did you review nursing and triage notes (agree or disagree)? Why? @ -I reviewed and agree with nursing and triage notes Were old charts reviewed (outside hosp., previous admission, EMS record, old EKG, old radiological studies, urgent care reports/EKG's, senior living records)? Report findings @ -No old charts were reviewed Differential Diagnosis (chest pain, altered mental status, abdominal pain women, abdominal pain men, vaginal bleeding, musculoskeletal, weakness, fever, dyspnea, syncope, headache, dizziness, GI bleed, back pain, seizure, CVA, palpatations, mental health)? @ -Differential Seizure: Recurrent seizure disorder, febrile seizure, alcohol withdrawal, stimulants, meningitis, encephalitis, intercranial hemorrhage, intracranial tumor, stroke, eclampsia, thyrotoxicosis, hypocalcemia, hyponatremia, hypernatremia, hypomagnesemia, psychogenic, this is not meant to be an all-inclusive list. EKG interpreted by me (3pts min.). @ -None done X-rays interpreted by me (1pt min.). @ -Abdominal chest x-ray shows no acute processes CT interpreted by me (1pt min.). @ -None done U/S interpreted by me (1pt. min.). @ -None done What testing was considered but not performed or refused? (CT, X-rays, U/S, labs)? Why? @ -None What meds were considered but not given or refused? Why? @ -None Did you discuss the management of the patient with other professionals (professionals i.e. , PA, PRINT JOURNALIST, lab, RT, psych nurse, psychologist social, plug drill operator, teacher, attendance officer, case work aide)? Give summary @ -No Was smoking cessation discussed for >3mins.? @ -No Was critical care preformed (if so, how long)? @ -No Were there social determinants of health that impacted care today? How? (Homelessness, low income, unemployed, alcoholism, drug addiction, transportation, low edu. Level, literacy, decrease access to med. care, longterm, rehab)? @ -No Was there de-escalation of care discussed even if they declined (Discuss DNR or withdrawal of care, Hospice)? DNR status @ -No What co-morbidities impacted this encounter? (DM, HTN, Smoking, COPD, CAD, Cancer, CVA, ARF, Chemo, Hep., AIDS, mental health diagnosis, sleep apnea, morbid obesity)? @ -None Was patient admitted / discharged? Hospital course, mention meds given and route, prescriptions, significant lab abnormalities, going to OR and other pertinent info. @ -58-year-old female presents emergency department after seizure. She has a history of seizures. She has not been able to tolerate her Keppra due to some nausea. She has chronic nausea and vomiting. Vital signs are stable. Patient well-appearing at the bedside. Laboratory evaluation obtained. CBC metabolic panel within acceptable limits she did have a lactic acidosis of 4.2 which consistent with seizure. Viral testing is negative. X-rays are negative. Patient reevaluated after IV fluids, antiemetics and Keppra loading dose. 7:50 PM patient feeling significantly improved able to tolerate oral intake. Patient be discharged Undiagnosed new problem with uncertain prognosis? @ -No Drug Therapy requiring intensive monitoring for toxicity (Heparin, Nitro, Insulin, Cardizem)? @ -No Were any procedures done? @ -No Diagnosis/symptom? Acute, or Chronic, or Acute on Chronic? Uncomplicated (without systemic symptoms) or Complicated (systemic symptoms)? @ -Seizure Side effects of treatment? @ -No Exacerbation, Progression, or Severe Exacerbation? @ -No Poses a threat to life or bodily function? How? (Chest pain, [place], [place], pneumonia, PE, COPD, DKA, ARF, appy, cholecystitis, CVA, Diverticulitis, Homicidal, Suicidal, threat to staff... and all critical care pts) @ -No - Lab Data Result diagrams: 11/27/23 18:04 11/27/23 18:04 Lab Results 11/27/23 11/27/23 11/27/23 Range/Units 18:04 18:04 18:04 WBC 6.2 (3.8-10.6) k/uL RBC 3.25 L (3.80-5.40) m/uL Hgb 11.5 (11.4-16.0) gm/dL Hct 33.0 L (34.0-46.0) % MCV 101.3 H (80.0-100.0) fL MCH 35.4 H (25.0-35.0) pg MCHC 35.0 (31.0-37.0) g/dL RDW 11.3 L (11.5-15.5) % Plt Count 110 L (150-450) k/uL MPV 8.5 Neutrophils % 82 % Lymphocytes % 11 % Monocytes % 2 % Eosinophils % 4 % Basophils % 0 % Neutrophils # 5.1 (1.3-7.7) k/uL Lymphocytes # 0.7 L (1.0-4.8) k/uL Monocytes # 0.1 (0-1.0) k/uL Eosinophils # 0.2 (0-0.7) k/uL Basophils # 0.0 (0-0.2) k/uL Sodium 137 (137-145) mmol/L Potassium 4.1 (3.5-5.1) mmol/L Chloride 96 L (98-107) mmol/L Carbon Dioxide 24 (22-30) mmol/L Anion Gap 17 mmol/L BUN 16 (7-17) mg/dL Creatinine 0.79 (0.52-1.04) mg/dL Est GFR (CKD-EPI)AfAm >90 (>60 ml/min/1.73 sqM) Est GFR (CKD-EPI)NonAf 85 (>60 ml/min/1.73 sqM) Glucose 155 H (74-99) mg/dL Plasma Lactic Acid Tee 4.2 H* (0.7-2.0) mmol/L Calcium 10.2 (8.4-10.2) mg/dL Total Bilirubin 1.8 H (0.2-1.3) mg/dL AST 103 H (14-36) U/L ALT 44 H (4-34) U/L Alkaline Phosphatase 157 H (38-126) U/L Total Protein 8.4 H (6.3-8.2) g/dL Albumin 5.2 H (3.5-5.0) g/dL Influenza Type A (PCR) (Not Detectd) Influenza Type B (PCR) (Not Detectd) RSV (PCR) (Not Detectd) SARS-CoV-2 (PCR) (Not Detectd) 11/27/23 Range/Units 18:04 WBC (3.8-10.6) k/uL RBC (3.80-5.40) m/uL Hgb (11.4-16.0) gm/dL Hct (34.0-46.0) % MCV (80.0-100.0) fL MCH (25.0-35.0) pg MCHC (31.0-37.0) g/dL RDW (11.5-15.5) % Plt Count (150-450) k/uL MPV Neutrophils % % Lymphocytes % % Monocytes % % Eosinophils % % Basophils % % Neutrophils # (1.3-7.7) k/uL Lymphocytes # (1.0-4.8) k/uL Monocytes # (0-1.0) k/uL Eosinophils # (0-0.7) k/uL Basophils # (0-0.2) k/uL Sodium (137-145) mmol/L Potassium (3.5-5.1) mmol/L Chloride (98-107) mmol/L Carbon Dioxide (22-30) mmol/L Anion Gap mmol/L BUN (7-17) mg/dL Creatinine (0.52-1.04) mg/dL Est GFR (CKD-EPI)AfAm (>60 ml/min/1.73 sqM) Est GFR (CKD-EPI)NonAf (>60 ml/min/1.73 sqM) Glucose (74-99) mg/dL Plasma Lactic Acid Tee (0.7-2.0) mmol/L Calcium (8.4-10.2) mg/dL Total Bilirubin (0.2-1.3) mg/dL AST (14-36) U/L ALT (4-34) U/L Alkaline Phosphatase (38-126) U/L Total Protein (6.3-8.2) g/dL Albumin (3.5-5.0) g/dL Influenza Type A (PCR) Not Detected (Not Detectd) Influenza Type B (PCR) Not Detected (Not Detectd) RSV (PCR) Not Detected (Not Detectd) SARS-CoV-2 (PCR) Not Detected (Not Detectd) Disposition Clinical Impression: Seizure Disposition: HOME SELF-CARE Condition: Good Instructions (If sedation given, give patient instructions): Recurrent Seizures in Adults (ED) Is patient prescribed a controlled substance at d/c from ED?: No Referrals: Jamia Irwin MD [Primary Care Provider] - 1-2 days Time of Disposition: 19:50
[2023-11-27] MEDS: ONDANSETRON 4 MG/2 ML VIAL IVP STA (18:02)
[2023-11-27 18:19] LABS: Basophils % (A) 0 %; Eosinophils # (A) 0.2 k/uL (0-0.7); Eosinophils % (A) 4 %; HGB 11.5 gm/dL (11.4-16.0); Lymphocytes # (A) 0.7 k/uL (1.0-4.8); Lymphocytes % (A) 11 %; MCH 35.4 pg (25.0-35.0); MCV 101.3 fL (80.0-100.0); Mean Platelet Volume 8.5; Monocytes # (A) 0.1 k/uL (0-1.0); Monocytes % (A) 2 %; Neutrophils # (A) 5.1 k/uL (1.3-7.7); Neutrophils % (A) 82 %; Platelet Count 110 k/uL (150-450); RBC 3.25 m/uL (3.80-5.40); RDW 11.3 % (11.5-15.5); WBC 6.2 k/uL (3.8-10.6)
[2023-11-27 18:41] LABS: ALT 44 U/L (4-34); AST 103 U/L (14-36); African American GFR (CKD) >90 (>60 ml/min/1.73 sqM); Albumin 5.2 g/dL (3.5-5.0); Alkaline Phosphatase 157 U/L (38-126); Anion Gap 17 mmol/L; Blood Urea Nitrogen 16 mg/dL (7-17); Calcium 10.2 mg/dL (8.4-10.2); Carbon Dioxide 24 mmol/L (22-30); Chloride 96 mmol/L (98-107); Glucose 155 mg/dL (74-99); Non-African American GFR(CKD) 85 (>60 ml/min/1.73 sqM); Potassium 4.1 mmol/L (3.5-5.1); Sodium 137 mmol/L (137-145); Total Bilirubin 1.8 mg/dL (0.2-1.3); Total Protein 8.4 g/dL (6.3-8.2)
--- NOTE | 2023-11-27 19:06 | XR ---
EXAMINATION TYPE: XR abdomen acute w cxr DATE OF EXAM: 11/27/2023 COMPARISON: NONE HISTORY: 58 year-old female nausea and vomiting, seizure today FINDINGS: Heart normal size. Aorta and pulmonary vasculature within normal limits. No consolidation o r pleural effusion. No evidence for free intraperitoneal air. No dilated small bowel or air-fluid levels. Small amount of scattered colonic air. No significant stool burden. No suspicious calcifications identified. IMPRESSION: 1. No acute cardiopulmonary process. 2. Nonobstructive bowel gas pattern. No free air. 3. No significant stool burden.
[2023-11-27 20:11] VITALS: BP 128/70; PULSE 70; RESP 16
== END 2023-11-27 20:07 | disposition home or self-care (01) ==
LOC: EC 17:07 → SUPCPDRO 17:07 → EC 20:07
DX: G40.909 Epilepsy, unspecified, not intractable, without status epilepticus (principal); I10 Essential (primary) hypertension; Z87.891 Personal history of nicotine dependence; Z20.822 Contact with and (suspected) exposure to COVID-19; Z88.5 Allergy status to narcotic agent
CPT/HCPCS: 36415; 80053; 83605; 85025; 87636; 74022; 99284; 96374; 96375; 96361; J2405; J1953

== ENCOUNTER 2024-06-25 22:00 | Emergency (ER) | payer BC ==
--- NOTE | 2024-06-25 23:31 | ED ---
Fall HPI - General Chief Complaint: Fall Stated Complaint: Fall Time Seen by Provider: 06/25/24 23:00 Source: EMS, RN notes reviewed Mode of arrival: EMS - History of Present Illness Initial Comments: 59-year-old female with history of seizures presenting for fall prior to arriva l. Patient states she drank a bottle of wine tonight and fell while she was in the bathroom, hitting the front of her face on the bathroom counter. Patient does not know if she lost consciousness or not. Patient does not know exactly how she fell. is at bedside who also reports patient had a fall earlier this week that was mechanical in nature. Patient tripped over the sliding door while walking into the house and hit the left side of her face on the ground. Patient reports she hit the right side of her face 2 nights on the bathroom counter. She admits to mild headache however denies other complaints or injuries. Denies chest pain or shortness of breath. Denies blood thinners. No other medical conditions. She has been able to weight-bear since the fall with no difficulties - Related Data Home Medications Medication Instructions Recorded Confirmed Atorvastatin Calcium [Lipitor] 40 mg PO HS 10/25/20 06/16/22 Escitalopram [Lexapro] 20 mg PO HS 10/25/20 06/16/22 Levothyroxine Sodium [Synthroid] 50 mcg PO DAILY 10/25/20 06/16/22 Folic Acid 0.8 mg PO DAILY 06/16/22 06/16/22 Triamcinolone 0.1% Cream [Kenalog 1 applic TOPICAL BID PRN 06/16/22 06/16/22 0.1% Cream] levETIRAcetam [Keppra Xr] 750 mg PO BID 06/16/22 06/16/22 Previous Rx's Medication Instructions Recorded Ondansetron [Zofran] 4 mg PO Q8HR PRN #12 tab 06/18/22 Pantoprazole Sodium [Protonix] 40 mg PO BID #60 tab 06/18/22 Allergies Allergy/AdvReac Type Severity Reaction Status Date / Time hydrocodone [From Vicodin] AdvReac Itching Verified 06/25/24 22:10 Review of Systems ROS Statement: Those systems with pertinent positive or pertinent negative responses have been documented in the HPI. ROS Other: All systems not noted in ROS Statement are negative. Past Medical History Past Medical History: Hypertension, Seizure Disorder Additional Past Medical History / Comment(s): skin cancer History of Any Multi-Drug Resistant Organisms: None Reported Past Surgical History: Section Past Psychological History: No Psychological Hx Reported Smoking Status: Former smoker Past Alcohol Use History: Abuse, Heavy Past Drug Use History: None Reported General Exam General appearance: alert, in no apparent distress, appears intoxicated Head exam: Present: normocephalic, other (Patient has diffuse contusions over left orbit and right forehead, mild tenderness to palpation) Eye exam: Present: normal appearance, PERRL, EOMI. Absent: scleral icterus, conjunctival injection, periorbital swelling Pupils: Present: normal accommodation ENT exam: Present: normal exam, mucous membranes moist Neck exam: Present: normal inspection. Absent: tenderness, meningismus, lymphadenopathy Respiratory exam: Present: normal lung sounds bilaterally. Absent: respiratory distress, wheezes, rales, rhonchi, stridor Cardiovascular Exam: Present: regular rate, normal rhythm, normal heart sounds. Absent: systolic murmur, diastolic murmur, rubs, gallop, clicks GI/Abdominal exam: Present: soft, normal bowel sounds. Absent: distended, tenderness, guarding, rebound, rigid Extremities exam: Present: full ROM, normal capillary refill. Absent: normal inspection (Mild contusion on left anterior knee, however minimal tenderness to palpation and full range of motion), tenderness, pedal edema, joint swelling, calf tenderness Back exam: Present: normal inspection Neurological exam: Present: alert, oriented X3, CN II-XII intact Psychiatric exam: Present: normal affect, normal mood Skin exam: Present: warm, dry, intact, normal color. Absent: rash Course Vital Signs 06/25/24 06/26/24 06/26/24 22:02 00:56 01:58 Temperature 98.1 F 97.9 F 97.4 F L Pulse Rate 91 85 88 Respiratory 18 19 18 Rate Blood Pressure 145/85 128/70 137/80 O2 Sat by Pulse 95 94 L 96 Oximetry Medical Decision Making - Medical Decision Making Was pt. sent in by a medical professional or institution (, PA, OCCUPATIONAL HEALTH SPECIALIST, urgent care, hospital, or detention...) When possible be specific @ -No Did you speak to anyone other than the patient for history (EMS, parent, family, police, friend...)? What history was obtained from this source @ - supplemented history Did you review nursing and triage notes (agree or disagree)? Why? @ -I reviewed and agree with nursing and triage notes Were old charts reviewed (outside hosp., previous admission, EMS record, old EKG, old radiological studies, urgent care reports/EKG's, detention records)? Report findings @ -No old charts were reviewed Differential Diagnosis (chest pain, altered mental status, abdominal pain women, abdominal pain men, vaginal bleeding, weakness, fever, dyspnea, syncope, hea dache, dizziness, GI bleed, back pain, seizure, CVA, palpatations, mental health, musculoskeletal)? @ -Differential Musculoskeletal Intracranial bleed, skull fracture, alcohol intoxication, muscular strain, contusion, ligament sprain, fracture, arthritis, septic arthritis, bursitis, cellulitis, muscle spasm, nerve compression, DVT, arterial occlusion, herpes zoster, electrolyte abnormality, tumor.... This is not meant to be in all inclusive list EKG interpreted by me (3pts min.). @ -As above X-rays interpreted by me (1pt min.). @ -None done CT interpreted by me (1pt min.). @ -CT facial bones and CT brain revealed hematoma on scalp, otherwise unremarkable U/S interpreted by me (1pt. min.). @ -None done What testing was considered but not performed or refused? (CT, X-rays, U/S, labs)? Why? @ -None What meds were considered but not given or refused? Why? @ -None Did you discuss the management of the patient with other professionals (professionals i.e. , PA, OCCUPATIONAL HEALTH SPECIALIST, lab, RT, psych nurse, social services director, quick print operator, teacher, public health officer, behavioral health case manager)? Give summary @ -No Was smoking cessation discussed for >3mins.? @ -No Was critical care preformed (if so, how long)? @ -No Were there social determinants of health that impacted care today? How? (Homelessness, low income, unemployed, alcoholism, drug addiction, transportation, low edu. Level, literacy, decrease access to med. care, senior living, rehab)? @ -No Was there de-escalation of care discussed even if they declined (Discuss DNR or withdrawal of care, Hospice)? DNR status @ -No What co-morbidities impacted this encounter? (DM, HTN, Smoking, COPD, CAD, Cancer, CVA, ARF, Chemo, Hep., AIDS, mental health diagnosis, sleep apnea, morbid obesity)? @ -None Was patient admitted / discharged? Hospital course, mention meds given and route, prescriptions, significant lab abnormalities, going to OR and other pertinent info. @ -Discharge. This is a 59-year-old female presenting with head injury status post fall prior to arrival. Patient states she drank 1 bottle of wine tonight and does not remember what caused the fall, but she states she hit her face on the bathroom counter. Denies thinners. Unknown loss of consciousness. Denies other injuries. She is currently endorsing a headache, otherwise asymptomatic. EKG reveals normal sinus rhythm with no ST changes. Lab including CBC, CMP, lactic acid, troponin unremarkable. Serum alcohol 372. CT facial bones and CT brain remarkable for hematoma of scalp, however otherwise no acute process. Discussed with patient that I believe fall was related to alcohol intoxication at this time, there does not appear to be emergent etiology causing fall or injury from fall. Patient is agreeable and feels stable for discharge. Patient and will have son pick them up from the ER. Return precautions discussed. Case was discussed with my ED attending Dr. Garrison. Patient discharged stable condition. Undiagnosed new problem with uncertain prognosis? @ -No Drug Therapy requiring intensive monitoring for toxicity (Heparin, Nitro, Insulin, Cardizem)? @ -No Were any procedures done? @ -No Diagnosis/symptom? @ -Fall, alcohol intoxication Acute, or Chronic, or Acute on Chronic? @ -Acute Uncomplicated (without systemic symptoms) or Complicated (systemic symptoms)? @ -Uncomplicated Side effects of treatment? @ -No Exacerbation, Progression, or Severe Exacerbation? @ -No Poses a threat to life or bodily function? How? (Chest pain, [place], [place], pneumonia, PE, COPD, DKA, ARF, appy, cholecystitis, CVA, Diverticulitis, Homicidal, Suicidal, threat to staff... and all critical care pts) @ -No - Lab Data Result diagrams: 06/25/24 23:38 06/25/24 23:38 Lab Results 06/25/24 06/25/24 06/25/24 Range/Units 23:38 23:38 23:38 WBC 7.8 (3.8-10.6) k/uL RBC 3.24 L (3.80-5.40) m/uL Hgb 11.4 (11.4-16.0) gm/dL Hct 34.8 (34.0-46.0) % MCV 107.3 H (80.0-100.0) fL MCH 35.2 H (25.0-35.0) pg MCHC 32.8 (31.0-37.0) g/dL RDW 12.0 (11.5-15.5) % Plt Count 300 (150-450) k/uL MPV 7.1 Neutrophils % 70 % Lymphocytes % 21 % Monocytes % 6 % Eosinophils % 1 % Basophils % 1 % Neutrophils # 5.5 (1.3-7.7) k/uL Lymphocytes # 1.6 (1.0-4.8) k/uL Monocytes # 0.5 (0-1.0) k/uL Eosinophils # 0.1 (0-0.7) k/uL Basophils # 0.1 (0-0.2) k/uL Macrocytosis Moderate Sodium 142 (137-145) mmol/L Potassium 4.6 (3.5-5.1) mmol/L Chloride 111 H (98-107) mmol/L Carbon Dioxide 18 L (22-30) mmol/L Anion Gap 13 mmol/L BUN 14 (7-17) mg/dL Creatinine 0.75 (0.52-1.04) mg/dL Est GFR (CKD-EPI)AfAm >90 (>60 ml/min/1.73 sqM) Est GFR (CKD-EPI)NonAf 89 (>60 ml/min/1.73 sqM) Glucose 111 H (74-99) mg/dL Plasma Lactic Acid Tee 1.6 (0.7-2.0) mmol/L Calcium 10.1 (8.4-10.2) mg/dL Total Bilirubin 0.7 (0.2-1.3) mg/dL AST 51 H (14-36) U/L ALT 28 (4-34) U/L Alkaline Phosphatase 90 (38-126) U/L Troponin I (0.000-0.034) ng/mL Total Protein 7.9 (6.3-8.2) g/dL Albumin 5.0 (3.5-5.0) g/dL Serum Alcohol 372 H* mg/dL 06/25/24 Range/Units 23:38 WBC (3.8-10.6) k/uL RBC (3.80-5.40) m/uL Hgb (11.4-16.0) gm/dL Hct (34.0-46.0) % MCV (80.0-100.0) fL MCH (25.0-35.0) pg MCHC (31.0-37.0) g/dL RDW (11.5-15.5) % Plt Count (150-450) k/uL MPV Neutrophils % % Lymphocytes % % Monocytes % % Eosinophils % % Basophils % % Neutrophils # (1.3-7.7) k/uL Lymphocytes # (1.0-4.8) k/uL Monocytes # (0-1.0) k/uL Eosinophils # (0-0.7) k/uL Basophils # (0-0.2) k/uL Macrocytosis Sodium (137-145) mmol/L Potassium (3.5-5.1) mmol/L Chloride (98-107) mmol/L Carbon Dioxide (22-30) mmol/L Anion Gap mmol/L BUN (7-17) mg/dL Creatinine (0.52-1.04) mg/dL Est GFR (CKD-EPI)AfAm (>60 ml/min/1.73 sqM) Est GFR (CKD-EPI)NonAf (>60 ml/min/1.73 sqM) Glucose (74-99) mg/dL Plasma Lactic Acid Tee (0.7-2.0) mmol/L Calcium (8.4-10.2) mg/dL Total Bilirubin (0.2-1.3) mg/dL AST (14-36) U/L ALT (4-34) U/L Alkaline Phosphatase (38-126) U/L Troponin I <0.012 (0.000-0.034) ng/mL Total Protein (6.3-8.2) g/dL Albumin (3.5-5.0) g/dL Serum Alcohol mg/dL - EKG Data -: EKG Interpreted by Ut EKG Comments: EKG reveals normal sinus rhythm with no ST changes. Ventricular rate 88 bpm, OR interval 156, QRS duration 101, QT/QTc 359/405 Disposition Clinical Impression: Fall, Alcohol intoxication Disposition: HOME SELF-CARE Condition: Stable Additional Instructions: Please return to the Emergency Department if symptoms worsen or any other concerns. Is patient prescribed a controlled substance at d/c from ED?: No Referrals: Jamia Irwin MD [Primary Care Provider] - 1-2 days Time of Disposition: 01:55
[2024-06-25 23:49] LABS: Basophils # (A) 0.1 k/uL (0-0.2); Basophils % (A) 1 %; Eosinophils # (A) 0.1 k/uL (0-0.7); Eosinophils % (A) 1 %; HCT 34.8 % (34.0-46.0); HGB 11.4 gm/dL (11.4-16.0); Lymphocytes # (A) 1.6 k/uL (1.0-4.8); Lymphocytes % (A) 21 %; MCH 35.2 pg (25.0-35.0); MCHC 32.8 g/dL (31.0-37.0); MCV 107.3 fL (80.0-100.0); Macrocytosis Moderate; Mean Platelet Volume 7.1; Monocytes # (A) 0.5 k/uL (0-1.0); Monocytes % (A) 6 %; Neutrophils # (A) 5.5 k/uL (1.3-7.7); Neutrophils % (A) 70 %; Platelet Count 300 k/uL (150-450); RBC 3.24 m/uL (3.80-5.40); WBC 7.8 k/uL (3.8-10.6)
[2024-06-26 00:27] LABS: ALT 28 U/L (4-34); AST 51 U/L (14-36); African American GFR (CKD) >90 (>60 ml/min/1.73 sqM); Alkaline Phosphatase 90 U/L (38-126); Anion Gap 13 mmol/L; Blood Urea Nitrogen 14 mg/dL (7-17); Calcium 10.1 mg/dL (8.4-10.2); Carbon Dioxide 18 mmol/L (22-30); Chloride 111 mmol/L (98-107); Glucose 111 mg/dL (74-99); Non-African American GFR(CKD) 89 (>60 ml/min/1.73 sqM); Potassium 4.6 mmol/L (3.5-5.1); Sodium 142 mmol/L (137-145); Total Bilirubin 0.7 mg/dL (0.2-1.3); Total Protein 7.9 g/dL (6.3-8.2)
[2024-06-26] MEDS: ONDANSETRON 4 MG/2 ML VIAL IM STA (00:35)
[2024-06-26] MEDS: SODIUM CHLORIDE 0.9% 1,000 ML IV STA (00:38)
[2024-06-26] MEDS: ONDANSETRON 4 MG/2 ML VIAL IVP STA (00:40)
[2024-06-26 00:42] LABS: Alcohol 372 mg/dL
[2024-06-26] MEDS: ACETAMINOPHEN TAB 500 MG TAB PO STA ×2 (01:12→01:23)
--- NOTE | 2024-06-26 01:38 | CT ---
EXAM: CT Head Without Intravenous Contrast CLINICAL HISTORY: ITS.REASON CT Reason: head trauma TECHNIQUE: Axial computed tomography images of the head/brain without intravenous contrast. CTDI is 45.2 mGy and DLP is 1189.4 mGy-cm. This CT exam was performed using one or more of the following dose reduction techniques: automated exposure control, adjustment of the mA and/or kV according to patient size, and/or use of iterative reconstruction technique. COMPARISON: 10/25/2020. FINDINGS: Brain: Unremarkable. No hemorrhage. No significant white matter disease. No abnormal extra-axial collection is noted. Midline shift: Midline anatomy is unremarkable. Ventricles: Unremarkable. No ventriculomegaly. Bones/joints: Calvarium is unremarkable. No acute fracture. Soft tissues: A 4.6 x 0.4 cm right frontal scalp hematoma is noted. Sinuses: 2.8 cm polyp versus because retentions right maxillary sinus. Mastoid air cells: Mastoid air cells are well pneumatized. Other findings: Age-related changes. IMPRESSION: 1. Right frontal scalp hematoma. 2. No acute intracranial pathology. 3. If there is concern for etiology such as early acute lacunar infarcts, MRI imaging of the brain with diffusion-weighted sequences should be performed.
--- NOTE | 2024-06-26 01:39 | CT ---
EXAM: CT Maxillofacial Without Intravenous Contrast CLINICAL HISTORY: ITS.REASON CT Reason: head injury TECHNIQUE: Axial computed tomography images of the face without intravenous contrast. CTDI is 40 mGy and DLP is 200 mGy-cm. This CT exam was performed using one or more of the following dose reduction techniques: automated exposure control, adjustment of the mA and/or kV according to patient size, and/or use of iterative reconstruction technique. COMPARISON: No previous studies. FINDINGS: Limitations: Limited evaluation due to artifact arising from [place]. Bones/joints: Visualized calvarium is unremarkable. Zygomatic arches are unremarkable. Lamina papyracea are unremarkable. Maxillary are unremarkable. Mandibular condyles are normal in height position. No acute mandibular fracture noted. Soft tissues: Soft tissues are unremarkable. Orbits: Orbital rims are intact. Sinuses: Unremarkable. No air-fluid levels. Nasal cavity/septum: Nasal bones are unremarkable. IMPRESSION: 1. No acute facial fracture is detected. 2. Chronic right maxillary sinusitis.
[2024-06-26 02:06] VITALS: BP 137/80; PULSE 88; RESP 18; TEMP 97.4
== END 2024-06-26 02:05 | disposition home or self-care (01) ==
LOC: EC 22:00
CPT/HCPCS: 36415; 70450; 70486; 80053; 80320; 83605; 84484; 85025; 93005; 96361; 96374; 99284

== ENCOUNTER 2024-09-26 17:00 | Inpatient (IN) | payer BC ==
--- NOTE | 2024-09-26 17:44 | ED ---
General Adult HPI - General Source: patient, family, RN notes reviewed Mode of arrival: wheelchair Limitations: no limitations <Callie French - Last Filed: 09/26/24 17:43> - General Source: patient, family, RN notes reviewed Mode of arrival: wheelchair Limitations: no limitations - History of Present Illness -: hour(s) Consistency: constant, now resolved Improves with: none Worsens with: none Associated Symptoms: loss of appetite, malaise, nausea/vomiting, weakness Treatments Prior to Arrival: none <Bharathi Monteiro - Last Filed: 09/26/24 20:06> - General Stated complaint: Seizure Time Seen by Provider: 09/26/24 17:43 - History of Present Illness Initial comments: Quick note: 59-year-old female presents to the emergency department for evaluation of seizures today. Patient reports that she had 2 seizures today 1 around noon and another around 4 PM. She does have known history of seizure disorder and is on Keppra 1000 mg twice daily. Denies missing any doses. She denies any recent illness. Her last seizure was about 6 months ago. (Callie French) This is a 59-year-old female for recurrent seizures 2 seizures today with prolonged seizure., Patient has been taking medications and believes the seizures were more frequent and longer than normal (Bharathi Monteiro) - Related Data Home Medications Medication Instructions Recorded Confirmed Atorvastatin Calcium [Lipitor] 40 mg PO HS 10/25/20 06/16/22 Escitalopram [Lexapro] 20 mg PO HS 10/25/20 06/16/22 Levothyroxine Sodium [Synthroid] 50 mcg PO DAILY 10/25/20 06/16/22 Folic Acid 0.8 mg PO DAILY 06/16/22 06/16/22 Triamcinolone 0.1% Cream [Kenalog 1 applic TOPICAL BID PRN 06/16/22 06/16/22 0.1% Cream] levETIRAcetam [Keppra Xr] 750 mg PO BID 06/16/22 06/16/22 Previous Rx's Medication Instructions Recorded Ondansetron [Zofran] 4 mg PO Q8HR PRN #12 tab 06/18/22 Pantoprazole Sodium [Protonix] 40 mg PO BID #60 tab 09/28/22 Allergies Allergy/AdvReac Type Severity Reaction Status Date / Time hydrocodone [From Vicodin] AdvReac Itching Verified 09/26/24 17:50 Review of Systems ROS Other: All systems not noted in ROS Statement are negative. <Callie French - Last Filed: 09/26/24 17:43> ROS Other: All systems not noted in ROS Statement are negative. <Bharathi Monteiro - Last Filed: 09/26/24 20:06> ROS Statement: Those systems with pertinent positive or pertinent negative responses have been documented in the HPI. Past Medical History Past Medical History: Hypertension, Seizure Disorder Additional Past Medical History / Comment(s): skin cancer History of Any Multi-Drug Resistant Organisms: None Reported Past Surgical History: Section Past Psychological History: No Psychological Hx Reported Smoking Status: Former smoker Past Alcohol Use History: Abuse, Heavy Past Drug Use History: None Reported <Callie French - Last Filed: 09/26/24 17:43> General Exam <Callie French - Last Filed: 09/26/24 17:43> General appearance: alert, in no apparent distress, anxious Head exam: Present: atraumatic, normocephalic, normal inspection Eye exam: Present: normal appearance, PERRL, EOMI. Absent: scleral icterus, conjunctival injection, periorbital swelling ENT exam: Present: normal exam, mucous membranes moist Neck exam: Present: normal inspection. Absent: tenderness, meningismus, lymph adenopathy Respiratory exam: Present: normal lung sounds bilaterally. Absent: respiratory distress, wheezes, rales, rhonchi, stridor Cardiovascular Exam: Present: regular rate, normal rhythm, normal heart sounds. Absent: systolic murmur, diastolic murmur, rubs, gallop, clicks GI/Abdominal exam: Present: soft, normal bowel sounds. Absent: distended, tenderness, guarding, rebound, rigid Extremities exam: Present: normal inspection, full ROM, normal capillary refill. Absent: tenderness, pedal edema, joint swelling, calf tenderness Back exam: Present: normal inspection Neurological exam: Present: alert, oriented X3, CN II-XII intact Psychiatric exam: Present: normal affect, normal mood Skin exam: Present: warm, dry, intact, normal color. Absent: rash <Bharathi Monteiro - Last Filed: 09/26/24 20:06> - General Exam Comments Initial Comments: Visual Physical Exam Vital signs reviewed General: Well-appearing, nontoxic, no acute distress. Head: Normocephalic, atraumatic Eyes: PERRLA, EOMI ENT: Airway patent Chest: Nonlabored breathing Skin: No visual rash, normal skin tone Neuro: Alert and oriented 3 Musculoskeletal: No gross abnormalities (Callie French) Course <Bharathi Monteiro - Last Filed: 09/26/24 20:06> Vital Signs 09/26/24 09/26/24 17:48 19:30 Temperature 98.7 F Pulse Rate 118 H 93 Respiratory 18 18 Rate Blood Pressure 134/88 116/75 O2 Sat by Pulse 97 97 Oximetry - Reevaluation(s) Reevaluation #1: 09/26/24 19:45 Medical records reviewed (Bharathi Monteiro) Reevaluation #2: 09/26/24 19:45 Patient symptoms unchanged (Bharathi Monteiro) Reevaluation #3: 09/26/24 19:45 Patient informed of results questions answered (Bharathi Monteiro) Reevaluation #4: Was pt. sent in by a medical professional or institution (, PA, TELEMETRY RN, urgent care, hospital, or group home...) When possible be specific @ -no Did you speak to anyone other than the patient for history (EMS, parent, family, police, friend...)? What history was obtained from this source @ -no Did you review nursing and triage notes (agree or disagree)? Why? @ -agree Are old charts reviewed (outside hosp., previous admission, EMS record, old EKG, old radiological studies, urgent care reports/EKG's, group home records)? Report findings @ -yes Differential Diagnosis (chest pain, altered mental status, abdominal pain women, abdominal pain men, vaginal bleeding, weakness, fever, dyspnea, syncope, headache, dizziness, GI bleed, back pain, seizure, CVA, palpatations, mental health, musculoskeletal)? @ -prior EKG interpreted by me (3pts min.). @ -yes X-rays interpreted by me (1pt min.). @ -yes negative for acute disease CT interpreted by me (1pt min.). @ -no U/S interpreted by me (1pt. min.). @ -no What testing was considered but not performed or refused? (CT, X-rays, U/S, labs)? Why? @ -none What meds were considered but not given or refused? Why? @ -none Did you discuss the management of the patient with other professionals (professionals i.e. Dr., PA, TELEMETRY RN, lab, RT, psych nurse, social media community manager, outsole handler, teacher, postal sorting officer, manager of case)? Give summary @ -no Was smoking cessation discussed for >3mins.? @ -no Was critical care preformed (if so, how long)? @ -no Were there social determinants of health that impacted care today? How? (Homelessness, low income, unemployed, alcoholism, drug addiction, transportation, low edu. Level, literacy, decrease access to med. care, correction, rehab)? @ -none Was there de-escalation of care discussed even if they declined (Discuss DNR or withdrawal of care, Hospice)? DNR status @ -no What co-morbidities impacted this encounter? (DM, HTN, Smoking, COPD, CAD, Cancer, CVA, ARF, Chemo, Hep., AIDS, mental health diagnosis, sleep apnea, morbid obesity)? @ -none Was patient admitted / discharged? Hospital course, mention meds given and route, prescriptions, significant lab abnormalities, going to OR and other pertinent info. @ - Undiagnosed new problem with uncertain prognosis? @ -no Drug Therapy requiring intensive monitoring for toxicity (Heparin, Nitro, Insulin, Cardizem)? @ -no Were any procedures done? @ -no Diagnosis/symptom? @ - Acute, or Chronic, or Acute on Chronic? @ -Acute Uncomplicated (without systemic symptoms) or Complicated (systemic symptoms)? @ -Complicated Side effects of treatment? @ -no Exacerbation, Progression, or Severe Exacerbation? @ -exacerbation Poses a threat to life or bodily function? How? (Chest pain, [place], [place], pneumonia, PE, COPD, DKA, ARF, appy, cholecystitis, CVA, Diverticulitis, Homicidal, Suicidal, threat to staff... and all critical care pts) @ -yes (Bharathi Monteiro) Reevaluation #5: Differential Seizure: Recurrent seizure disorder, febrile seizure, alcohol withdrawal, stimulants, meningitis, encephalitis, intercranial hemorrhage, intracranial tumor, stroke, eclampsia, thyrotoxicosis, hypocalcemia, hyponatremia, hypernatremia, hypomagnesemia, psychogenic, this is not meant to be an all-inclusive list. (Bharathi Monteiro) - Consultations Consultation #1: Spoke with [facility] who agrees to admit this patient (Bharathi Monteiro) EKG Findings - EKG Comments: EKG Findings:: EKG is sinus tachycardia 112 MT 165 QRS 100 QTc 408 - EKG Results: EKG: interpreted by ERMD <Bharathi Monteiro - Last Filed: 09/26/24 20:06> Medical Decision Making <Callie French - Last Filed: 09/26/24 17:43> - Lab Data Result diagrams: 09/26/24 18:03 09/26/24 18:03 <Bharathi Monteiro - Last Filed: 09/26/24 20:06> - Medical Decision Making Quick note preformed and electronically signed by Callie French PA-C (Callie French) 59 female to the ER for evaluation patient has recurrent seizure, patient also has low magnesium's which need to be replaced. Patient will admit for electrolyte replacement (Bharathi Monteiro) - Lab Data Lab Results 09/26/24 09/26/24 Range/Units 18:03 18:03 WBC 6.4 (3.8-10.6) k/uL RBC 2.98 L (3.80-5.40) m/uL Hgb 11.1 L (11.4-16.0) gm/dL Hct 32.9 L (34.0-46.0) % MCV 110.3 H (80.0-100.0) fL MCH 37.3 H (25.0-35.0) pg MCHC 33.8 (31.0-37.0) g/dL RDW 12.4 (11.5-15.5) % Plt Count 128 L (150-450) k/uL MPV 8.6 Neutrophils % 81 % Lymphocytes % 10 % Monocytes % 6 % Eosinophils % 1 % Basophils % 1 % Neutrophils # 5.2 (1.3-7.7) k/uL Lymphocytes # 0.6 L (1.0-4.8) k/uL Monocytes # 0.4 (0-1.0) k/uL Eosinophils # 0.1 (0-0.7) k/uL Basophils # 0.0 (0-0.2) k/uL Manual Slide Review Performed Macrocytosis Marked A Sodium 137 (137-145) mmol/L Potassium 3.7 (3.5-5.1) mmol/L Chloride 94 L (98-107) mmol/L Carbon Dioxide 27 (22-30) mmol/L Anion Gap 16 mmol/L BUN 15 (7-17) mg/dL Creatinine 0.97 (0.52-1.04) mg/dL Est GFR (CKD-EPI)AfAm 75 (>60 ml/min/1.73 sqM) Est GFR (CKD-EPI)NonAf 65 (>60 ml/min/1.73 sqM) Glucose 138 H (74-99) mg/dL Calcium 9.9 (8.4-10.2) mg/dL Phosphorus 1.6 L (2.5-4.5) mg/dL Magnesium 0.8 L* (1.6-2.3) mg/dL Total Bilirubin 1.5 H (0.2-1.3) mg/dL AST 75 H (14-36) U/L ALT 32 (4-34) U/L Alkaline Phosphatase 121 (38-126) U/L Total Protein 8.1 (6.3-8.2) g/dL Albumin 5.1 H (3.5-5.0) g/dL Disposition <Callie French - Last Filed: 09/26/24 17:43> Is patient prescribed a controlled substance at d/c from ED?: No Time of Disposition: 19:40 <Bharathi Monteiro - Last Filed: 09/26/24 20:06> Clinical Impression: Epileptic seizure, generalized, Hypomagnesemia, Malnutrition Disposition: ADMITTED IP TO THIS [facility] Condition: Good
[2024-09-26 18:21] LABS: Basophils % (A) 1 %; Eosinophils # (A) 0.1 k/uL (0-0.7); Eosinophils % (A) 1 %; HCT 32.9 % (34.0-46.0); HGB 11.1 gm/dL (11.4-16.0); Lymphocytes # (A) 0.6 k/uL (1.0-4.8); Lymphocytes % (A) 10 %; MCH 37.3 pg (25.0-35.0); MCHC 33.8 g/dL (31.0-37.0); MCV 110.3 fL (80.0-100.0); Macrocytosis Marked; Mean Platelet Volume 8.6; Monocytes # (A) 0.4 k/uL (0-1.0); Monocytes % (A) 6 %; Neutrophils # (A) 5.2 k/uL (1.3-7.7); Neutrophils % (A) 81 %; Platelet Count 128 k/uL (150-450); RBC 2.98 m/uL (3.80-5.40); RDW 12.4 % (11.5-15.5); WBC 6.4 k/uL (3.8-10.6)
[2024-09-26 18:25] LABS: ALT 32 U/L (4-34); AST 75 U/L (14-36); African American GFR (CKD) 75 (>60 ml/min/1.73 sqM); Albumin 5.1 g/dL (3.5-5.0); Alkaline Phosphatase 121 U/L (38-126); Anion Gap 16 mmol/L; Blood Urea Nitrogen 15 mg/dL (7-17); Calcium 9.9 mg/dL (8.4-10.2); Carbon Dioxide 27 mmol/L (22-30); Chloride 94 mmol/L (98-107); Glucose 138 mg/dL (74-99); Non-African American GFR(CKD) 65 (>60 ml/min/1.73 sqM); Phosphorus 1.6 mg/dL (2.5-4.5); Potassium 3.7 mmol/L (3.5-5.1); Sodium 137 mmol/L (137-145); Total Bilirubin 1.5 mg/dL (0.2-1.3); Total Protein 8.1 g/dL (6.3-8.2)
[2024-09-26 18:41] LABS: Magnesium 0.8 mg/dL (1.6-2.3)
[2024-09-26] MEDS: MAGNESIUM SULFATE-D5W PMX 1 GM in DEXTROSE/WATER 1 100ML.BAG IVPB SCH (19:25)
[2024-09-26] MEDS ORDERED: LORazepam 2 MG/ML INJ IV PRN ×4 (19:42)
[2024-09-26] MEDS ORDERED: NALOXONE 0.4 MG/ML 1 ML VIAL IV PRN (19:42)
[2024-09-26] MEDS ORDERED: LORazepam 1 MG TAB PO PRN ×4 (19:42)
[2024-09-26] MEDS ORDERED: ONDANSETRON 4 MG/2 ML VIAL IVP PRN (19:42)
[2024-09-26] MEDS ORDERED: LORazepam 0.5 MG TAB PO PRN (19:42)
[2024-09-26] MEDS: levETIRAcetam IV 500 MG/5 ML VIAL IVP STA (19:54)
[2024-09-26] MEDS: MAGNESIUM OXIDE 400 MG TAB PO STA ×2 (19:58→19:59)
[2024-09-26] MEDS: DEXTROSE 5%-0.45% NACL 1,000 ML IV SCH (21:06)
[2024-09-26] MEDS: IBUPROFEN 600 MG TAB PO STA (21:32)
[2024-09-27 03:52] LABS: Appearance,Urine Cloudy (Clear); Bacteria,Urine Rare /hpf; Bilirubin,Urine Negative (Negative); Blood,Urine Trace (Negative); Color,Urine Light Orange; Glucose,Urine (UA) Negative (Negative); Hyaline Casts,Urine 39 /lpf (0-2); Ketones,Urine Trace (Negative); Leukocyte Esterase,Urine Large (Negative); Mucus,Urine Occasional /hpf; Nitrite,Urine Negative (Negative); PH, Urine 5.5 (5.0-8.0); Protein,Urine 2+ (Negative); RBC,Urine 4 /hpf (0-5); Specific Gravity,Urine 1.033 (1.001-1.035); Squamous Epithelial Cell,Urine 15 /hpf (0-4); Urobilinogen,Urine <2.0 mg/dL (<2.0); WBC,Urine 20 /hpf (0-5)
[2024-09-27 07:52] VITALS: RESP 18; TEMP 98
[2024-09-27 08:57] LABS: ALT 26 U/L (8-44); AST 73 U/L (13-35); Albumin 4.3 g/dL (3.8-4.9); Albumin/Globulin Ratio 1.72 Ratio (1.60-3.17); Alkaline Phosphatase 107 U/L (41-126); Blood Urea Nitrogen 12.8 mg/dL (9.0-27.0); Calcium 9.1 mg/dL (8.7-10.3); Carbon Dioxide 25.7 mmol/L (21.6-31.8); Chloride 99 mmol/L (96-109); Globulin 2.5 g/dL (1.6-3.3); Glucose 109 mg/dL (70-110); Magnesium 1.7 mg/dL (1.5-2.4); Phosphorus 1.4 mg/dL (2.4-5.1); Potassium 3.3 mmol/L (3.5-5.5); Sodium 139 mmol/L (135-145); Total Bilirubin 1.2 mg/dL (0.3-1.2); Total Protein 6.8 g/dL (6.2-8.2)
[2024-09-27] MEDS: MAGNESIUM OXIDE 400 MG TAB PO SCH (09:14)
[2024-09-27] MEDS: levETIRAcetam IV 500 MG/5 ML VIAL IVP SCH (09:14)
[2024-09-27] MEDS: MULTIVITAMINS, THERA 1 EACH TAB PO SCH (09:14)
[2024-09-27] MEDS: THIAMINE 100 MG TAB PO SCH (09:14)
[2024-09-27] MEDS: FOLIC ACID 1 MG TAB PO SCH (09:14)
[2024-09-27 09:15] VITALS: BP 131/94; PULSE 84
[2024-09-27 09:37] LABS: Basophils # (A) 0.04 X 10*3/uL (0.00-0.10); Basophils % (A) 0.7 %; Eosinophils # (A) 0.04 X 10*3/uL (0.04-0.35); Eosinophils % (A) 0.7 %; HCT 28.1 % (37.2-46.3); HGB 9.3 g/dL (12.0-15.0); Lymphocytes # (A) 1.32 X 10*3/uL (0.90-5.00); Lymphocytes % (A) 23.6 %; MCH 36.2 pg (27.0-32.0); MCHC 33.1 g/dL (32.0-37.0); MCV 109.3 FL (80.0-97.0); Mean Platelet Volume 10.2 FL (9.5-12.2); Monocytes # (A) 0.48 X 10*3/uL (0.20-1.00); Monocytes % (A) 8.6 %; NRBC Per 100 WBC 0 X 10*3/uL (0.00-0.01); Neutrophils # (A) 3.68 X 10*3/uL (1.80-7.70); Neutrophils % (A) 65.9 %; Platelet Count 96 X 10*3/uL (140-440); RBC 2.57 X 10*6/uL (4.10-5.20); RDW 12.3 % (11.5-14.5); WBC 5.59 X 10*3/uL (4.50-10.00)
--- NOTE | 2024-09-27 11:29 | P.HPIM ---
History of Present Illness 59-year-old pleasant female with known history of seizures. Takes 1000 mg of Keppra twice a day came in with 2 seizures yesterday associate with aura loss of consciousness and ported postictal state and tongue biting without any loss of bowel or bladder continence. Patient's magnesium was low which was replaced and potassium is low which will be replaced. Patient probably will need a repeat magnesium as an outpatient and on regular supplementation if needed if it continues to be low as an outpatient. Patient denied any UTI symptoms urine is slightly abnormal. No fever or leukocytosis. REVIEW OF SYSTEMS: All other systems are negative except those mentioned in the HPI PHYSICAL EXAMINATION: GENERAL: The patient is alert and oriented x3, not in any acute distress. Well developed, well nourished. HEENT: Pupils are round and equally reacting to light. EOMI. No scleral icterus. No conjunctival pallor. Normocephalic, atraumatic. No pharyngeal erythema. No thyromegaly. CARDIOVASCULAR: S1 and S2 present. No murmurs, rubs, or gallops. PULMONARY: Chest is clear to auscultation, no wheezing or crackles. ABDOMEN: Soft, nontender, nondistended, normoactive bowel sounds. No palpable organomegaly. MUSCULOSKELETAL: No joint swelling or deformity. EXTREMITIES: No cyanosis, clubbing, or pedal edema. NEUROLOGICAL: Gross neurological examination did not reveal any focal deficits. SKIN: No rashes. Assessment and plan -Breakthrough seizures patient is presently receiving IV Keppra: I do not have any Keppra levels of levels available at this time. Will discuss with neurology probably increase the dose of Keppra or add a new antiseizure medication after the patient probably can be discharged. -Asymptomatic bacteria will not require any antibiotics -Hypomagnesemia magnesium replaced here, will need repeat magnesium as an outpatient if continues to be low may need magnesium supplementation as an outpatient -Hypertension Patient will be discharged later today with above-mentioned plan Past Medical History Past Medical History: Hypertension, Seizure Disorder Additional Past Medical History / Comment(s): skin cancer History of Any Multi-Drug Resistant Organisms: None Reported Past Surgical History: Section Past Psychological History: No Psychological Hx Reported Smoking Status: Former smoker Past Alcohol Use History: Abuse, Heavy Past Drug Use History: None Reported Medications and Allergies Home Medications Medication Instructions Recorded Confirmed Type Atorvastatin Calcium [Lipitor] 40 mg PO DAILY 10/25/20 09/26/24 History Escitalopram [Lexapro] 20 mg PO HS 10/25/20 09/26/24 History ALPRAZolam [Xanax] 0.25 mg PO BID PRN 09/26/24 09/26/24 History levETIRAcetam [Keppra] 1,000 mg PO BID 09/26/24 09/26/24 History Allergies Allergy/AdvReac Type Severity Reaction Status Date / Time hydrocodone [From Vicodin] AdvReac Itching Verified 09/26/24 20:08 Physical Exam Vitals: Vital Signs Temp Pulse Resp BP Pulse Ox 09/27/24 09:12 84 18 131/94 100 09/27/24 07:49 98.0 F 80 18 146/94 96 09/27/24 06:04 98.1 F 87 16 126/66 96 09/27/24 03:49 81 16 09/27/24 02:51 87 17 132/76 98 09/26/24 22:00 92 16 137/82 97 09/26/24 21:00 90 15 123/78 98 09/26/24 20:00 97 19 124/78 97 09/26/24 19:30 93 18 116/75 97 09/26/24 17:48 98.7 F 118 H 18 134/88 97 Intake and Output 09/26/24 09/27/24 09/27/24 22:59 06:59 14:59 Other: # Voids 1 # Bowel Movements 1 1 Weight 56.245 kg Results CBC & Chem 7: 09/27/24 05:33 09/27/24 05:33 Labs: Abnormal Lab Results - Last 24 Hours (Table) 09/26/24 09/26/24 09/27/24 Range/Units 18:03 18:03 02:40 RBC 2.98 L (3.80-5.40) m/uL Hgb 11.1 L (11.4-16.0) gm/dL Hct 32.9 L (34.0-46.0) % MCV 110.3 H (80.0-100.0) fL MCH 37.3 H (25.0-35.0) pg Plt Count 128 L (150-450) k/uL Lymphocytes # 0.6 L (1.0-4.8) k/uL Macrocytosis Marked A Potassium (3.5-5.5) mmol/L Chloride 94 L (98-107) mmol/L Anion Gap (4.00-12.00) mmol/L Glucose 138 H (74-99) mg/dL Phosphorus 1.6 L (2.5-4.5) mg/dL Magnesium 0.8 L* (1.6-2.3) mg/dL Total Bilirubin 1.5 H (0.2-1.3) mg/dL AST 75 H (14-36) U/L Albumin 5.1 H (3.5-5.0) g/dL Urine Appearance Cloudy H (Clear) Urine Protein 2+ H (Negative) Urine Ketones Trace H (Negative) Urine Blood Trace H (Negative) Ur Leukocyte Esterase Large H (Negative) Urine WBC 20 H (0-5) /hpf Ur Squamous Epith Cells 15 H (0-4) /hpf Urine Bacteria Rare H (None) /hpf Hyaline Casts 39 H (0-2) /lpf Urine Mucus Occasional H (None) /hpf 09/27/24 09/27/24 Range/Units 05:33 05:33 RBC 2.57 L (3.80-5.40) m/uL Hgb 9.3 L (11.4-16.0) gm/dL Hct 28.1 L (34.0-46.0) % MCV 109.3 H (80.0-100.0) fL MCH 36.2 H (25.0-35.0) pg Plt Count 96 L (150-450) k/uL Lymphocytes # (1.0-4.8) k/uL Macrocytosis Potassium 3.3 L (3.5-5.5) mmol/L Chloride (98-107) mmol/L Anion Gap 14.30 H (4.00-12.00) mmol/L Glucose (74-99) mg/dL Phosphorus 1.4 L (2.5-4.5) mg/dL Magnesium (1.6-2.3) mg/dL Total Bilirubin (0.2-1.3) mg/dL AST 73 H (14-36) U/L Albumin (3.5-5.0) g/dL Urine Appearance (Clear) Urine Protein (Negative) Urine Ketones (Negative) Urine Blood (Negative) Ur Leukocyte Esterase (Negative) Urine WBC (0-5) /hpf Ur Squamous Epith Cells (0-4) /hpf Urine Bacteria (None) /hpf Hyaline Casts (0-2) /lpf Urine Mucus (None) /hpf
--- NOTE | 2024-09-27 11:30 | P.DS ---
Providers Date of admission: 09/26/24 19:44 Attending physician: Loly Franco Consults: 09/27/24 11:23 Consult Physician Routine Consulting Provider: Lucille Zaragoza Consult Reason/Comments: Breakthrough seizures Do you want consulting provider notified?: Yes Primary care physician: Jamia Irwin [facility] Course: 59-year-old pleasant female with known history of seizures. Takes 1000 mg of Keppra twice a day came in with 2 seizures yesterday associate with aura loss of consciousness and ported postictal state and tongue biting without any loss of bowel or bladder continence. Patient's magnesium was low which was replaced and potassium is low which will be replaced. Patient probably will need a repeat magnesium as an outpatient and on regular supplementation if needed if it continues to be low as an outpatient. Patient denied any UTI symptoms urine is slightly abnormal. No fever or leukocytosis. REVIEW OF SYSTEMS: All other systems are negative except those mentioned in the HPI PHYSICAL EXAMINATION: GENERAL: The patient is alert and oriented x3, not in any acute distress. Well developed, well nourished. HEENT: Pupils are round and equally reacting to light. EOMI. No scleral icterus. No conjunctival pallor. Normocephalic, atraumatic. No pharyngeal erythema. No thyromegaly. CARDIOVASCULAR: S1 and S2 present. No murmurs, rubs, or gallops. PULMONARY: Chest is clear to auscultation, no wheezing or crackles. ABDOMEN: Soft, nontender, nondistended, normoactive bowel sounds. No palpable organomegaly. MUSCULOSKELETAL: No joint swelling or deformity. EXTREMITIES: No cyanosis, clubbing, or pedal edema. NEUROLOGICAL: Gross neurological examination did not reveal any focal deficits. SKIN: No rashes. Assessment and plan -Breakthrough seizures patient is presently receiving IV Keppra: I do not have any Keppra levels of levels available at this time. Will discuss with neurology probably increase the dose of Keppra or add a new antiseizure medication after the patient probably can be discharged. -Asymptomatic bacteria will not require any antibiotics -Hypomagnesemia magnesium replaced here, will need repeat magnesium as an outpatient if continues to be low may need magnesium supplementation as an outpatient -Hypertension Patient will be discharged later today with above-mentioned plan Patient Condition at Discharge: Good Plan - Discharge Summary New Discharge Prescriptions: No Action Escitalopram [Lexapro] 20 mg PO HS Atorvastatin Calcium [Lipitor] 40 mg PO DAILY levETIRAcetam [Keppra] 1,000 mg PO BID ALPRAZolam [Xanax] 0.25 mg PO BID PRN PRN Reason: Anxiety Discharge Medication List Atorvastatin Calcium [Lipitor] 40 mg PO DAILY 10/25/20 [History] Escitalopram [Lexapro] 20 mg PO HS 10/25/20 [History] ALPRAZolam [Xanax] 0.25 mg PO BID PRN 09/26/24 [History] levETIRAcetam [Keppra] 1,000 mg PO BID 09/26/24 [History] Follow up Appointment(s)/Referral(s): Jamia Irwin MD [Primary Care Provider] - 1-2 days Eulalio Carreno DO [STAFF PHYSICIAN] - 1 Week Patient Instructions/Handouts: Seizure/Epilepsy Discharge Instructions & Follow-Up Discharge Disposition: HOME SELF-CARE
[2024-09-27] MEDS: POTASSIUM CHLORIDE ER 20 MEQ TAB.ER PO STA (12:06)
[2024-09-27] MEDS: MAGNESIUM SULFATE-D5W PMX 1 GM in DEXTROSE/WATER 1 100ML.BAG IVPB ONE (12:47)
== END 2024-09-27 14:25 | disposition home or self-care (01) | DRG 101 ==
LOC: EC 17:00 → 5NMEDONC 19:44 → 1SOBS 09-27 09:34
PROVIDERS: ADMIT Hospitalist; ATTEND Hospitalist
DX: G40.409 Other generalized epilepsy and epileptic syndromes, not intractable, without status epilepticus (principal); E46 Unspecified protein-calorie malnutrition; F10.11 Alcohol abuse, in remission; I10 Essential (primary) hypertension; E83.42 Hypomagnesemia; Z68.21 Body mass index [BMI] 21.0-21.9, adult; R82.71 Bacteriuria; Z79.899 Other long term (current) drug therapy; Z87.891 Personal history of nicotine dependence; Z85.828 Personal history of other malignant neoplasm of skin; Z88.5 Allergy status to narcotic agent
CPT/HCPCS: 36415; 80053; 81001; 83735; 84100; 85025; 93005; 96365; 96366; 96367; 96375; 96376; 99284